=== PATIENT | female | born 1990 | race African-American/Black ===

== ENCOUNTER 2016-06-16 13:13 | Emergency (ER) | payer MEDICAID | END 2016-06-16 14:12 | disposition home or self-care (01) | DX: B34.9 Viral infection, unspecified (principal); I10 Essential (primary) hypertension ==

== ENCOUNTER 2016-10-02 09:27 | Emergency (ER) | payer MEDICAID ==
--- NOTE | 2016-10-02 09:51 | ED Physician Documentation ---
PD HPI HEADACHE - Stated complaint Stated Complaint: PAL/FEMALE - Chief complaint Chief Complaint: General - History obtained from History obtained from: Patient - History of Present Illness Timing - onset: How many days ago (3) Timing - onset during: Light activity Timing - duration: Days (3) Timing - details: Gradual onset, Still present, Waxing and waning Worst headache ever?: No: Worst headache ever? Location: Front Quality: Throbbing, Aching Associated symptoms: Nausea, Other (sinus congestion and pressure from seasonal allergies.). No: Fever, Stiff neck, Vomiting, Weakness, Numbness, Syncope Improved by: No: Rest, Dark room, Meds (tried some ibuprofen yesterday) Worsened by: No: Light, Noise Contributing factors: No: Recent illness Similar symptoms before: Has not had sx before Recently seen: Not recently seen Review of Systems Constitutional: denies: Fever, Chills Eyes: denies: Loss of vision, Decreased vision Ears: denies: Ear pain, Drainage/discharge Nose: reports: Congestion, Sinus pressure / pain Throat: reports: Dental pain / toothache (right upper tooth pain with chesing and temperature for week or so.). denies: Sore throat Cardiac: denies: Chest pain / pressure Respiratory: denies: Dyspnea, Cough, Wheezing GI: reports: Nausea. denies: Abdominal Pain, Vomiting, Constipation, Diarrhea : reports: Dysuria (today, feeling some burning when she urinates. 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 - Present Medications Home Medications: Ambulatory Orders Medication Instructions Recorded Confirmed Sertraline HCl 25 mg PO DAILY 06/14/15 06/16/16 Dexamethasone [Decadron] 4 mg PO DAILY #5 tablet 10/02/16 Hydrocodone/Acetaminophen [[place] 1 each PO Q6H PRN #15 tablet 10/02/16 5-325 Tablet] Insomnia Med 10/02/16 Ondansetron Odt [Zofran] 4 mg TL Q6H PRN #15 tablet 10/02/16 - Allergies Allergies/Adverse Reactions: Allergies Allergy/AdvReac Type Severity Reaction Status Date / Time No Known Drug Allergies Allergy Verified 10/02/16 09:40 - Social History Does the pt smoke?: No Smoking Status: Never smoker Does the pt drink ETOH?: No Does the pt have substance abuse?: No - Immunizations Immunizations are current?: Yes PD ED PE NORMAL - Vitals Vital signs reviewed: Yes - General General: Alert and oriented X 3, Well developed/nourished - HEENT HEENT: Ears normal, Pharynx benign, Other (cavity right upper premolar, without gum swelling nor tenderness. Some sinus tenderness to percussion.) - Neck Neck: Supple, no meningeal sign, No adenopathy - Cardiac Cardiac: RRR, No murmur - Respiratory Respiratory: Clear bilaterally - Abdomen Abdomen: Soft, Non tender - Derm Derm: Normal color, Warm and dry, No rash Results - Vitals Vitals: Vital Signs - 24 hr 10/02/16 10/02/16 09:31 11:12 Temperature 37 C 36.2 C L Heart Rate 77 64 Respiratory 16 18 Rate Blood Pressure 131/79 H 139/85 H O2 Saturation 100 100 Oxygen O2 Source Room air - Labs Labs: Laboratory Tests 10/02/16 09:41 Urine Color YELLOW Urine Clarity CLEAR Urine pH 8.0 H Ur Specific [place] 1.020 Urine Protein NEGATIVE Urine Glucose (UA) NEGATIVE Urine Ketones NEGATIVE Urine Occult Blood MODERATE H Urine Nitrite NEGATIVE Urine Bilirubin NEGATIVE Urine Urobilinogen 0.2 (NORMAL) Ur Leukocyte Esterase NEGATIVE Urine RBC 11-25 H Urine WBC 4-5 Ur Squamous Epith Cells FEW Squamous Amorphous Sediment Moderate Urine Bacteria None Seen Ur Microscopic Review INDICATED Urine Culture Comments NOT INDICATED Urine HCG, Qual NEGATIVE PD MEDICAL DECISION MAKING - ED course Complexity details: reviewed results (UA appears okay without obvious infection. She denies vaginal discharge, rash and we opted for not doing pelvic as she does not suspect vaginitis. ), considered differential (Headache sounds sinus pressure and she has had allergies feeling worse lately. ), d/w patient Departure - Departure Disposition: 01 Home, Self Care Clinical Impression: Dysuria Headache Qualifiers: Headache type: unspecified Headache chronicity pattern: acute headache Intractability: not intractable Qualified Code(s): R51 - Headache Condition: Stable Record reviewed to determine appropriate education?: Yes Instructions: ED Dysuria Uncertain Cause, ED Cephalgia Unspecified Follow-Up: Delbert Sethi MD [Primary Care Provider] - Prescriptions: Dexamethasone [Decadron] 4 mg PO DAILY #5 tablet Hydrocodone/Acetaminophen [[place] 5-325 Tablet] 1 each PO Q6H PRN #15 tablet PRN Reason: Pain Ondansetron Odt [Zofran] 4 mg TL Q6H PRN #15 tablet PRN Reason: Nausea / Vomiting Comments: Drink lots of fluids. Decadron daily for 5 days, presuming headache is sinus/ allergy related. Zofran if needed for nausea. Tylenol or Hydrocodone as needed for headache. Recheck if not improved over the next few days. Your urine does not show signs of infection at this point. May be hydration related. Recheck if not improved over the next couple of days as well. Discharge Date/Time: 10/02/16 11:15
[2016-10-02] MEDS ORDERED: DEXAMETHASONE 10 MG/ML VIAL PO STA (10:03)
[2016-10-02] MEDS ORDERED: ONDANSETRON ODT 4 MG TABLET TL STA (10:03)
[2016-10-02] MEDS ORDERED: HYDROcod/ACETAM 5/325 MG TABLET PO STA (10:03)
[2016-10-02] MEDS ORDERED: ONDANSETRON ODT 4 MG TABLET ONE (10:16)
[2016-10-02] MEDS ORDERED: DEXAMETHASONE 10 MG/ML VIAL ONE (10:16)
[2016-10-02] MEDS ORDERED: HYDROcod/ACETAM 5/325 MG TABLET ONE (10:16)
[2016-10-02 10:42] LABS: BILIRUBIN,URINE NEGATIVE (NEGATIVE)
[2016-10-02 10:55] LABS: HCG UR QUAL NEGATIVE; UA w/ MICROSCOPIC CHARGE YES
[2016-10-02 10:56] LABS: UR CULTURE IF IND NOT INDICATED
[2016-10-02] MEDS ORDERED: PHENAZOPYRIDINE 100 MG TABLET PO STA (11:04)
[2016-10-02] MEDS ORDERED: PHENAZOPYRIDINE 100 MG TABLET PO ONE (11:08)
[2016-10-02 11:13] VITALS: BP 139/85
== END 2016-10-02 11:15 | disposition home or self-care (01) ==
LOC: ED 09:27
DX: R30.0 Dysuria (principal); R51 Headache; I10 Essential (primary) hypertension; J45.909 Unspecified asthma, uncomplicated
CPT/HCPCS: 81001; 81025; 99283; A9270; Q0162; 81003; 87086

== ENCOUNTER 2016-11-18 05:44 | Outpatient (CLI) | payer MEDICAID | END 2016-11-18 05:45 | disposition critical access hospital (66) | LOC: EMS 05:44 | PROVIDERS: ATTEND Surgery | DX: R30.9 Painful micturition, unspecified (principal); R51 Headache | CPT/HCPCS: A0425; A0429 ==

== ENCOUNTER 2016-11-18 06:07 | Emergency (ER) | payer MEDICAID ==
[2016-11-18 06:09] VITALS: BP 132/69
[2016-11-18 06:22] LABS: BILIRUBIN,URINE NEGATIVE (NEGATIVE)
--- NOTE | 2016-11-18 06:22 | ED Physician Documentation ---
PD HPI FEMALE - Stated complaint Stated Complaint: - Chief complaint Chief Complaint: General - History obtained from History obtained from: Patient - History of Present Illness Timing - onset: Yesterday Timing - details: Gradual onset, Still present Associated symptoms: Vaginal bleeding, Dysuria, Urinary frequency. No: Abdominal pain, Vaginal discharge, Genital sore/lesion Contributing factors: No: Similar symptoms before: Work up / diagnostics, Treatment Recently seen: Not recently seen - Additional information Additional information: Patient is a 26 year old female with a history of cerebral palsy who is presenting to the emergency department for dysuria. Patient states that the symptoms started yesterday with severe burning and got progressively worse so she called ems to bring her to the emergency department. Review of Systems Constitutional: denies: Fever, Chills Eyes: denies: Loss of vision, Photophobia Ears: denies: Ear pain, Drainage/discharge Nose: denies: Rhinorrhea / runny nose, Congestion Throat: denies: Dental pain / toothache, Sore throat Cardiac: denies: Chest pain / pressure Respiratory: denies: Cough, Wheezing GI: denies: Abdominal Pain, Nausea, Vomiting, Constipation, Diarrhea : reports: Dysuria, Frequency, Vaginal bleeding Skin: denies: Rash, Lesions Neurologic: reports: Headache. 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 - Present Medications Home Medications: Ambulatory Orders Medication Instructions Recorded Confirmed Sertraline HCl 25 mg PO DAILY 06/14/15 11/18/16 Benzonatate 1 tab PO PRN PRN 11/18/16 11/18/16 Phenazopyridine HCl [Pyridium] 200 mg PO TID PRN #6 tablet 11/18/16 Risperidone [Risperdal] 1 tab PO DAILY 11/18/16 11/18/16 Sulfamethox/Trimeth 800/160 1 each PO BID #14 tablet 11/18/16 [Bactrim Ds 800/160] traZODone [Desyrel] 1 tab PO DAILY 11/18/16 11/18/16 - Allergies Allergies/Adverse Reactions: Allergies Allergy/AdvReac Type Severity Reaction Status Date / Time No Known Drug Allergies Allergy Verified 11/18/16 06:09 - Social History Does the pt smoke?: No Smoking Status: Never smoker Does the pt drink ETOH?: No Does the pt have substance abuse?: No - Immunizations Immunizations are current?: Yes PD ED PE NORMAL - Vitals Vital signs reviewed: Yes - General General: Alert and oriented X 3, No acute distress, Well developed/nourished - HEENT HEENT: Atraumatic, PERRL, Moist mucous membranes - Neck Neck: Supple, no meningeal sign - Cardiac Cardiac: RRR, No murmur - Respiratory Respiratory: No respiratory distress, Clear bilaterally - Abdomen Abdomen: Soft, Non tender, Non distended - Derm Derm: Normal color, Warm and dry, No rash - Extremities Extremities: No deformity, No tenderness to palpate, Normal ROM s pain - Neuro Neuro: Alert and oriented X 3, No motor deficit, No sensory deficit, Normal speech - Psych Psych: Normal mood, Normal affect Results - Vitals Vitals: Vital Signs - 24 hr 11/18/16 06:07 Temperature 37.2 C Heart Rate 84 Respiratory 15 Rate Blood Pressure 132/69 H O2 Saturation 96 Oxygen O2 Source Room air - Labs Labs: Laboratory Tests 11/18/16 11/18/16 06:10 06:10 Urine Color LIGHT YELLOW Urine Clarity CLOUDY Urine pH 7.0 Ur Specific [place] 1.015 1.015 Urine Protein NEGATIVE Urine Glucose (UA) NEGATIVE Urine Ketones NEGATIVE Urine Occult Blood SMALL H Urine Nitrite POSITIVE H Urine Bilirubin NEGATIVE Urine Urobilinogen 0.2 (NORMAL) Ur Leukocyte Esterase LARGE H Urine RBC 6-10 H Urine WBC >25 H Urine WBC Clumps PRESENT Ur Squamous Epith Cells RARE Squamous Urine Bacteria Moderate H Ur Microscopic Review INDICATED Urine Culture Comments INDICATED Urine HCG, Qual NEGATIVE PD MEDICAL DECISION MAKING - ED course Complexity details: reviewed old records, reviewed results, re-evaluated patient , considered differential, d/w patient ED course: Patient was seen and examined at bedside. patient was well appearing with normal vital signs. patient's urine was collected. when the results came back patient was treated with. bactrim, pyridium and tylenol. Patient was able to tolerate po without any difficulty and was stable for discharge with outpatient follow up. Departure - Departure Disposition: 01 Home, Self Care Clinical Impression: Urinary tract infection Condition: Good Instructions: ED UTI Cystitis Female Follow-Up: primary,care provider [Other] Prescriptions: Sulfamethox/Trimeth 800/160 [Bactrim Ds 800/160] 1 each PO BID #14 tablet Phenazopyridine HCl [Pyridium] 200 mg PO TID PRN #6 tablet PRN Reason: dysuria Comments: Your symptoms today are being caused by a urinary tract infection. You will have your first dose of antibiotics this morning and will need to take them for the next week. You should drink plenty of fluids and stay well hydrated. the pyridium may turn your urine orange. You can take motrin or tylenol as needed for pain. You may return to the emergency department at any time for new, worsening or uncontrollable symptoms.
[2016-11-18 06:26] LABS: UA w/ MICROSCOPIC CHARGE YES
[2016-11-18 06:27] LABS: HCG UR QUAL NEGATIVE
[2016-11-18] MEDS ORDERED: ACETAMINOPHEN 500 MG TABLET PO STA (06:33)
[2016-11-18] MEDS ORDERED: SULFAMETH/TRIMETH DS 800/160 MG TABLET PO STA (06:33)
[2016-11-18] MEDS ORDERED: PHENAZOPYRIDINE 100 MG TABLET PO STA (06:33)
[2016-11-18 06:34] LABS: UR CULTURE IF IND INDICATED; WBC,URINE >25 /HPF (0-5)
[2016-11-18] MEDS ORDERED: SULFAMETH/TRIMETH DS 800/160 MG TABLET PO ONE (06:41)
[2016-11-18] MEDS ORDERED: PHENAZOPYRIDINE 100 MG TABLET PO ONE (06:41)
[2016-11-18] MEDS ORDERED: ACETAMINOPHEN 500 MG TABLET PO ONE (06:41)
== END 2016-11-18 06:48 | disposition home or self-care (01) ==
LOC: EDBD → ED 06:07
DX: N39.0 Urinary tract infection, site not specified (principal); I10 Essential (primary) hypertension; G80.9 Cerebral palsy, unspecified
CPT/HCPCS: 81001; 81025; 87077; 87086; 87181; 99283; A9270; 81003

== ENCOUNTER 2017-01-15 15:59 | Emergency (ER) | payer MEDICAID ==
[2017-01-15 16:26] VITALS: BP 110/70
[2017-01-15] MEDS ORDERED: DEXAMETHASONE 10 MG/ML VIAL PO STA (17:28)
--- NOTE | 2017-01-15 17:30 | ED Physician Documentation ---
PD KENY HEENT - Stated complaint Stated Complaint: RT EAR PX - Chief complaint Chief Complaint: Heent - History obtained from History obtained from: Patient - History of Present Illness Timing - onset: How many days ago (3) Timing - duration: Days (3) Timing - details: Gradual onset, Still present Location: Right ear Improves: Medication Worsens: Swalllowing Associated symptoms: Congestion, Headache Similar symptoms before: Has not had sx before Recently seen: Not recently seen - Additional information Additional information: 26-year-old female is began to develop some pain in her right ear about 3 days ago she has had persistence of this pain did not go away so she is come in for evaluation. She has not had much in the way of a cough she has had a little bit of congestion she does not have much in the way of postnasal drainage. 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 - Present Medications Home Medications: Ambulatory Orders Medication Instructions Recorded Confirmed Sertraline HCl 25 mg PO DAILY 06/14/15 11/18/16 Benzonatate 1 tab PO PRN PRN 11/18/16 11/18/16 Phenazopyridine HCl [Pyridium] 200 mg PO TID PRN #6 tablet 11/18/16 Risperidone [Risperdal] 1 tab PO DAILY 11/18/16 11/18/16 Sulfamethox/Trimeth 800/160 1 each PO BID #14 tablet 11/18/16 [Bactrim Ds 800/160] traZODone [Desyrel] 1 tab PO DAILY 11/18/16 11/18/16 Azithromycin [Zithromax] 250 mg PO DAILY #6 tablet 01/15/17 - Allergies Allergies/Adverse Reactions: Allergies Allergy/AdvReac Type Severity Reaction Status Date / Time No Known Drug Allergies Allergy Verified 11/18/16 06:09 - Social History Does the pt smoke?: No Smoking Status: Never smoker Does the pt drink ETOH?: No Does the pt have substance abuse?: No - Immunizations Immunizations are current?: Yes PD ED PE NORMAL - Vitals Vital signs reviewed: Yes (Normal) - General General: No acute distress, Well developed/nourished - HEENT HEENT: Atraumatic, PERRL, EOMI, Moist mucous membranes, Pharynx benign (There is erythema in the attic on the right side the left is clear.), Other - Neck Neck: Supple, no meningeal sign, No bony TTP - Cardiac Cardiac: RRR, No murmur - Respiratory Respiratory: No respiratory distress, Clear bilaterally - Abdomen Abdomen: Soft, Non tender - Derm Derm: Normal color, Warm and dry, No rash - Extremities Extremities: No deformity, No edema - Neuro Neuro: Alert and oriented X 3, No motor deficit, No sensory deficit - Psych Psych: Normal mood, Normal affect Results - Vitals Vitals: Vital Signs - 24 hr 01/15/17 16:21 Temperature 36.7 C Heart Rate 88 Respiratory 18 Rate Blood Pressure 110/70 O2 Saturation 100 Oxygen O2 Source Room air PD MEDICAL DECISION MAKING - ED course Complexity details: reviewed old records, considered differential, d/w patient ED course: 26-year-old female with history of cerebral palsy who has had pain in her right ear for 3 days she does have some inflammation of the attic and she is treated in the emergency department with dexamethasone 10 mg orally and we will put her on some azithromycin. Departure - Departure Disposition: 01 Home, Self Care Clinical Impression: Otitis media Qualifiers: Otitis media type: suppurative Chronicity: acute Laterality: right Recurrence: not specified as recurrent Spontaneous tympanic membrane rupture: without spontaneous rupture Qualified Code(s): H66.001 - Acute suppurative otitis media without spontaneous rupture of ear drum, right ear Condition: Stable Instructions: ED Otitis Media Acute Adult Follow-Up: Delbert Sethi MD [Primary Care Provider] - Prescriptions: Azithromycin [Zithromax] 250 mg PO DAILY #6 tablet
[2017-01-15] MEDS ORDERED: DEXAMETHASONE 10 MG/ML VIAL ONE (17:34)
== END 2017-01-15 17:42 | disposition home or self-care (01) ==
LOC: ED 15:59
DX: H66.001 Acute suppurative otitis media without spontaneous rupture of ear drum, right ear (principal); I10 Essential (primary) hypertension
CPT/HCPCS: 99283

== ENCOUNTER 2017-03-01 10:00 | Outpatient (CLI) | payer MEDICAID | END 2017-03-01 10:15 | disposition home or self-care (01) | LOC: RT.N 10:00 | PROVIDERS: ATTEND Physician Assistant Medical | DX: R07.89 Other chest pain (principal) | CPT/HCPCS: 93005 ==

== ENCOUNTER 2017-05-01 09:59 | Emergency (ER) | payer MEDICAID ==
[2017-05-01 10:17] VITALS: BP 129/100
--- NOTE | 2017-05-01 11:11 | ED Physician Documentation ---
History of Present Illness - Stated complaint Stated Complaint: COLD SX - Chief complaint Chief Complaint: Fever - Additonal information Additional information: hx from pt to ER with 2 problems 1 - R lower premolar pain rad to side of her face 2 - cough congestion body aches fever chills denies preg Review of Systems Constitutional: reports: Fever, Chills Nose: reports: Congestion Throat: reports: Dental pain / toothache Respiratory: reports: Cough : denies: Now EGA PD PAST MEDICAL HISTORY - Past Medical History Cardiovascular: Hypertension Respiratory: Asthma Neuro: Headache/migraine, Seizure disorder - Past Surgical History Past Surgical History: Yes 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 - Present Medications Home Medications: Ambulatory Orders Medication Instructions Recorded Confirmed Sertraline HCl 25 mg PO DAILY 06/14/15 05/01/17 risperiDONE [Risperdal] 1 tab PO DAILY 11/18/16 05/01/17 traZODone [Desyrel] 1 tab PO DAILY 11/18/16 05/01/17 Benzonatate [Tessalon] 100 mg PO TID PRN #20 capsule 05/01/17 Fluticasone [Flonase] 1 sprays MAXWELL BID PRN #1 bottle 05/01/17 Penicillin Vk 500 mg PO Q8H 10 Days tablet 05/01/17 guaiFENesin/DEXTROMETHORPHAN 10 ml PO Q6H PRN #120 ml 05/01/17 [Robitussin Dm] - Allergies Allergies/Adverse Reactions: Allergies Allergy/AdvReac Type Severity Reaction Status Date / Time No Known Drug Allergies Allergy Verified 05/01/17 10:17 - Social History Does the pt smoke?: No Smoking Status: Never smoker Does the pt drink ETOH?: No Does the pt have substance abuse?: No - Immunizations Immunizations are current?: Yes PD ED PE NORMAL - Vitals Vital signs reviewed: Yes - General General: Alert and oriented X 3 - HEENT HEENT: PERRL, Ears normal, Moist mucous membranes, Pharynx benign, Other (R premolar with cavity and TTP no visible abscess) - Neck Neck: Supple, no meningeal sign - Cardiac Cardiac: RRR - Respiratory Respiratory: No respiratory distress, Clear bilaterally - Abdomen Abdomen: Soft, Non tender Results - Vitals Vitals: Vital Signs - 24 hr 05/01/17 10:15 Temperature 36.9 C Heart Rate 76 Respiratory 18 Rate Blood Pressure 129/100 H O2 Saturation 100 Oxygen O2 Source Room air Departure - Departure Disposition: 01 Home, Self Care Clinical Impression: Viral URI, Dental infection Condition: Good Instructions: ED URI Viral, ED Abscess Dental Follow-Up: Dre Dickerson PA-C [Primary Care Provider] - Prescriptions: Benzonatate [Tessalon] 100 mg PO TID PRN #20 capsule PRN Reason: to ease cough Fluticasone [Flonase] 1 sprays MAXWELL BID PRN #1 bottle PRN Reason: allergies guaiFENesin/DEXTROMETHORPHAN [Robitussin Dm] 10 ml PO Q6H PRN #120 ml PRN Reason: Cough Penicillin Vk 500 mg PO Q8H 10 Days tablet Comments: I have prescribed an antibiotic for your tooth, a nose srpay for you congestion and two cough medications. You can also take Tylenol and motrin as needed for pain or fever You need to follow up with a dentist - the antibiotic will help the infection temporarily but not fix the cavity Forms: Activity restrictions
== END 2017-05-01 11:22 | disposition home or self-care (01) ==
LOC: ED 09:59
DX: K04.7 Periapical abscess without sinus (principal); J06.9 Acute upper respiratory infection, unspecified; B97.89 Other viral agents as the cause of diseases classified elsewhere; I10 Essential (primary) hypertension
CPT/HCPCS: 99283

== ENCOUNTER 2017-08-30 09:00 | Emergency (ER) | payer MEDICAID ==
[2017-08-30 09:09] VITALS: BP 129/90
[2017-08-30 09:55] LABS: BILIRUBIN,URINE NEGATIVE (NEGATIVE); GLUCOSE, URINE (UA) NEGATIVE (NEGATIVE); KETONES,URINE (UA) NEGATIVE (NEGATIVE); LEUKOCYTE ESTERASE, URINE NEGATIVE (NEGATIVE); NITRITE,URINE NEGATIVE (NEGATIVE); OCCULT BLOOD,URINE NEGATIVE (NEGATIVE); PROTEIN,URINE NEGATIVE (NEGATIVE); UROBILINOGEN,URINE 0.2 (NORMAL) E.U./dL (NORMAL)
[2017-08-30 09:58] LABS: CLARITY,URINE CLEAR (CLEAR)
--- NOTE | 2017-08-30 10:22 | ED Physician Documentation ---
PD HPI FEMALE - Stated complaint Stated Complaint: FEMALE - Chief complaint Chief Complaint: Abd Pain - History obtained from History obtained from: Patient - History of Present Illness Timing - onset: How many days ago (3) Timing - details: Still present in ED Associated symptoms: Dysuria Similar symptoms before: Has not had sx before (History of similar symptoms with urinary tract infections in the past. The last time was about 2 months ago.) - Additional information Additional information: The patient is a 27-year-old female who complains of dysuria over the past 3 days. She denies fever, nausea, vomiting, or vaginal discharge. She is currently on her menstrual period. She has a history of urinary tract infections. The last time was about 2 months ago. She has no history of diabetes. Review of Systems Constitutional: denies: Fever Nose: denies: Congestion Throat: denies: Sore throat Cardiac: denies: Chest pain / pressure Respiratory: denies: Dyspnea, Cough GI: denies: Abdominal Pain, Nausea, Vomiting : reports: Dysuria, Frequency, LMP (currently). 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 - Present Medications Home Medications: Ambulatory Orders Medication Instructions Recorded Confirmed Sertraline HCl 25 mg PO DAILY 06/14/15 05/01/17 Bcp 08/30/17 Phenazopyridine HCl [Pyridium] 200 mg PO TID PRN #10 tablet 08/30/17 - Allergies Allergies/Adverse Reactions: Allergies Allergy/AdvReac Type Severity Reaction Status Date / Time No Known Drug Allergies Allergy Verified 08/30/17 09:09 - Social History Does the pt smoke?: No Smoking Status: Never smoker Does the pt drink ETOH?: No Does the pt have substance abuse?: No - Immunizations Immunizations are current?: Yes PD ED PE NORMAL - Vitals Vital signs reviewed: Yes (borderline hypertension initially) - General General: Alert and oriented X 3, Well developed/nourished - HEENT HEENT: Atraumatic, Pharynx benign - Neck Neck: No adenopathy - Cardiac Cardiac: RRR - Respiratory Respiratory: No respiratory distress, Clear bilaterally - Abdomen Abdomen: Soft, Non tender - Back Back: No CVA TTP - Derm Derm: No rash - Extremities Extremities: No edema, No calf tenderness / cord - Neuro Neuro: Alert and oriented X 3, No motor deficit, Normal speech PD ED PE EXPANDED - Female Female : Normal external, Normal exam, Cultures sent, Tobacco Sweeper present ( BECCA Garcia.). No: Vaginal Bleeding, Vaginal Discharge, CMT, Adnexal Tenderness Results - Vitals Vitals: Vital Signs - 24 hr 08/30/17 09:06 Temperature 36.4 C L Heart Rate 62 Respiratory 16 Rate Blood Pressure 129/90 H O2 Saturation 99 Oxygen O2 Source Room air - Labs Labs: Laboratory Tests 08/30/17 09:48 Urine Color YELLOW Urine Clarity CLEAR Urine pH 6.0 Ur Specific [place] 1.020 Urine Protein NEGATIVE Urine Glucose (UA) NEGATIVE Urine Ketones NEGATIVE Urine Occult Blood NEGATIVE Urine Nitrite NEGATIVE Urine Bilirubin NEGATIVE Urine Urobilinogen 0.2 (NORMAL) Ur Leukocyte Esterase NEGATIVE Ur Microscopic Review NOT INDICATED Urine Culture Comments NOT INDICATED PD MEDICAL DECISION MAKING - ED course Complexity details: reviewed old records, reviewed results, re-evaluated patient , considered differential, d/w patient ED course: The underlying cause of the patient's dysuria is unclear at this time. Her urinalysis is negative. Pelvic exam reveals no vaginal discharge or inflammation or ulcerations. Pelvic cultures were obtained and sent to the lab , and results are pending. Treatment in the emergency department included administration of Pyridium 200 mg orally. She is being discharged with a prescription for Pyridium. I discussed with her the results of her workup, symptomatic treatment and outpatient follow-up, as well as potentially worrisome signs or symptoms that should prompt reevaluation in the emergency department. Departure - Departure Disposition: 01 Home, Self Care Clinical Impression: Dysuria Condition: Stable Instructions: ED Dysuria Uncertain Cause Follow-Up: Delbert Sethi MD [Primary Care Provider] - Prescriptions: Phenazopyridine HCl [Pyridium] 200 mg PO TID PRN #10 tablet PRN Reason: pain with urination Comments: Drink plenty of fluids, including cranberry juice. You can use Pyridium as prescribed if needed for painful urination. Follow up with your primary physician within 2 weeks. Call to schedule appointment. Return to the emergency department if you develop increasing pain with urination , or otherwise worsening symptoms.
[2017-08-30] MEDS ORDERED: PHENAZOPYRIDINE 100 MG TABLET PO STA (11:03)
--- NOTE | 2017-08-30 11:11 | ED Physician Documentation ---
PD HPI FEMALE - Stated complaint Stated Complaint: FEMALE - Chief complaint Chief Complaint: Abd Pain - History obtained from History obtained from: Patient - History of Present Illness Timing - onset: How many days ago (3) Timing - details: Still present Associated symptoms: Dysuria Similar symptoms before: Diagnosis (History of similar symptoms in the past with urinary tract infections. The last time was about 2 months ago.) - Additional information Additional information: The patient is a 27-year-old female who presents with dysuria of 3 days duration. She denies abdominal pain, fever, nausea or vomiting. She has history of similar symptoms in the past with urinary tract infections. Last time was about 2 months ago. She is currently on her menstrual period. 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 - Present Medications Home Medications: Ambulatory Orders Medication Instructions Recorded Confirmed Sertraline HCl 25 mg PO DAILY 06/14/15 05/01/17 Bcp 08/30/17 Phenazopyridine HCl [Pyridium] 200 mg PO TID PRN #10 tablet 08/30/17 - Allergies Allergies/Adverse Reactions: Allergies Allergy/AdvReac Type Severity Reaction Status Date / Time No Known Drug Allergies Allergy Verified 08/30/17 09:09 - Social History Does the pt smoke?: No Smoking Status: Never smoker Does the pt drink ETOH?: No Does the pt have substance abuse?: No - Immunizations Immunizations are current?: Yes PD ED PE NORMAL - Vitals Vital signs reviewed: Yes (borderline hypertension initially.) - General General: Alert and oriented X 3, Well developed/nourished - HEENT HEENT: Atraumatic - Respiratory Respiratory: No respiratory distress - Abdomen Abdomen: Soft, Non tender - Female Female : Head Of Housekeeping present - Back Back: No CVA TTP - Derm Derm: No rash - Neuro Neuro: Alert and oriented X 3, Normal speech PD ED PE EXPANDED - Female Female : Normal external, Normal exam, Cultures sent, Head Of Housekeeping present. No: Vaginal Bleeding, Vaginal Discharge, CMT, Adnexal Mass, Adnexal Tenderness Results - Vitals Vitals: Oxygen O2 Source Room air - Labs Labs: Laboratory Tests 08/30/17 08/30/17 09:48 11:05 Urine Color YELLOW Urine Clarity CLEAR Urine pH 6.0 Ur Specific [place] 1.020 Urine Protein NEGATIVE Urine Glucose (UA) NEGATIVE Urine Ketones NEGATIVE Urine Occult Blood NEGATIVE Urine Nitrite NEGATIVE Urine Bilirubin NEGATIVE Urine Urobilinogen 0.2 (NORMAL) Ur Leukocyte Esterase NEGATIVE Ur Microscopic Review NOT INDICATED Urine Culture Comments NOT INDICATED C.trachomatis RNA (TMA) NOT DETECTED Chlamydia/GC Comment SEE NOTE N.gonorrhoeae RNA (TMA) NOT DETECTED PD MEDICAL DECISION MAKING - ED course Complexity details: reviewed results, re-evaluated patient, considered differential, d/w patient ED course: The underlying cause for the patient's dysuria is unclear at this time. Her urinalysis is negative, and test is negative. GC and chlamydia cultures are pending. Her pelvic exam reveals no evidence of vaginal mucosal lesions or discharge. Treatment in the emergency department included administration of Pyridium 200 mg orally. She is being discharged with prescription for Pyridium. I discussed with her symptomatic treatment, outpatient follow-up, as well as potentially worrisome signs or symptoms that should prompt reevaluation in the emergency department. Departure - Departure Disposition: 01 Home, Self Care Clinical Impression: Dysuria Condition: Stable Instructions: ED Dysuria Uncertain Cause Follow-Up: Delbert Sethi MD [Primary Care Provider] - Prescriptions: Phenazopyridine HCl [Pyridium] 200 mg PO TID PRN #10 tablet PRN Reason: pain with urination Comments: Drink plenty of fluids, including cranberry juice. You can use Pyridium as prescribed if needed for painful urination. Follow up with your primary physician within 2 weeks. Call to schedule appointment. Return to the emergency department if you develop increasing pain with urination , or otherwise worsening symptoms. Forms: Activity restrictions Discharge Date/Time: 08/30/17 11:23
== END 2017-08-30 11:23 | disposition home or self-care (01) ==
LOC: ED 09:00
DX: R30.0 Dysuria (principal); I10 Essential (primary) hypertension
CPT/HCPCS: 81003; 87491; 87591; 99283; A9270; 81001; 87086

== ENCOUNTER 2017-11-18 14:07 | Emergency (ER) | payer MEDICAID ==
[2017-11-18 14:12] VITALS: BP 132/81
[2017-11-18 14:42] LABS: BILIRUBIN,URINE NEGATIVE (NEGATIVE); GLUCOSE, URINE (UA) NEGATIVE (NEGATIVE); KETONES,URINE (UA) NEGATIVE (NEGATIVE); LEUKOCYTE ESTERASE, URINE SMALL (NEGATIVE); NITRITE,URINE NEGATIVE (NEGATIVE); OCCULT BLOOD,URINE NEGATIVE (NEGATIVE); PROTEIN,URINE NEGATIVE (NEGATIVE); UROBILINOGEN,URINE 0.2 (NORMAL) E.U./dL (NORMAL)
[2017-11-18 14:44] LABS: CLARITY,URINE HAZY (CLEAR); HCG UR QUAL POSITIVE
[2017-11-18 14:48] LABS: RBC,URINE 0-5 /HPF (0-5)
[2017-11-18 14:49] LABS: BACTERIA,URINE Few /HPF (None Seen); SQUAMOUS EPITHELIAL CELL,UR MOD Squamous (<= Few)
--- NOTE | 2017-11-18 15:02 | ED Physician Documentation ---
History of Present Illness - Stated complaint Stated Complaint: TEST - Chief complaint Chief Complaint: General - Additonal information Additional information: hx from pt 27 f prior pregnancies to ED with nausea and low back pain LMP October 04 when i ask if she might be she says that i what she is here to find out Review of Systems Constitutional: denies: Fever, Chills Cardiac: denies: Chest pain / pressure GI: reports: Nausea. denies: Abdominal Pain : reports: Now EGA (maybe). 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 - Present Medications Home Medications: Ambulatory Orders Medication Instructions Recorded Confirmed Pnv No.121/Iron/Folic Acid 1 each PO DAILY #30 tablet 11/18/17 [ Multivitamin Tablet] Pyridoxine HCl [Vitamin B-6] 25 mg PO Q8H PRN #10 tablet 11/18/17 - Allergies Allergies/Adverse Reactions: Allergies Allergy/AdvReac Type Severity Reaction Status Date / Time No Known Drug Allergies Allergy Verified 11/18/17 14:12 - Social History Does the pt smoke?: No Smoking Status: Never smoker Does the pt drink ETOH?: No Does the pt have substance abuse?: No - Immunizations Immunizations are current?: Yes - POLST Patient has POLST: No PD ED PE NORMAL - Vitals Vital signs reviewed: Yes - Neck Neck: Supple, no meningeal sign - Cardiac Cardiac: RRR - Respiratory Respiratory: No respiratory distress - Abdomen Abdomen: Soft, Non tender - Derm Derm: Normal color - Neuro Neuro: Alert and oriented X 3 Results - Vitals Vitals: Vital Signs - 24 hr 11/18/17 14:09 Temperature 36.8 C Heart Rate 89 Respiratory 16 Rate Blood Pressure 132/81 H O2 Saturation 100 Oxygen O2 Source Room air - Labs Labs: Laboratory Tests 11/18/17 14:16 Urine Color YELLOW Urine Clarity HAZY Urine pH 7.0 Ur Specific [place] 1.010 Urine Protein NEGATIVE Urine Glucose (UA) NEGATIVE Urine Ketones NEGATIVE Urine Occult Blood NEGATIVE Urine Nitrite NEGATIVE Urine Bilirubin NEGATIVE Urine Urobilinogen 0.2 (NORMAL) Ur Leukocyte Esterase SMALL H Urine RBC 0-5 Urine WBC 6-10 H Ur Squamous Epith Cells MOD Squamous H Urine Bacteria Few Ur Microscopic Review INDICATED Urine Culture Comments NOT INDICATED Urine HCG, Qual POSITIVE PD MEDICAL DECISION MAKING - ED course ED course: pt no abd pain no vag bleed do not feel pt needs emergent OB sono as she has no s/sx of ectopic - Sepsis Event Vital Signs: Vital Signs - 24 hr 11/18/17 14:09 Temperature 36.8 C Heart Rate 89 Respiratory 16 Rate Blood Pressure 132/81 H O2 Saturation 100 Oxygen O2 Source Room air Departure - Departure Disposition: 01 Home, Self Care Clinical Impression: Qualifiers: Weeks of gestation: less than 8 weeks Qualified Code(s): Z3A.01 - Less than 8 weeks gestation of Condition: Good Prescriptions: Pnv No.121/Iron/Folic Acid [ Multivitamin Tablet] 1 each PO DAILY #30 tablet Pyridoxine HCl [Vitamin B-6] 25 mg PO Q8H PRN #10 tablet PRN Reason: vomiting in
== END 2017-11-18 15:48 | disposition home or self-care (01) ==
LOC: ED 14:07
DX: Z32.01 Encounter for pregnancy test, result positive (principal); O10.911 Unspecified pre-existing hypertension complicating pregnancy, first trimester; Z3A.08 8 weeks gestation of pregnancy
CPT/HCPCS: 81001; 81003; 81025; 87086; 99283

== ENCOUNTER 2017-12-12 08:00 | Outpatient (CLI) | payer MEDICAID | END 2017-12-12 08:01 | LOC: LAB.R 08:00 | PROVIDERS: ATTEND Obstetrics & Gynecology | DX: Z11.3 Encounter for screening for infections with a predominantly sexual mode of transmission (principal) | CPT/HCPCS: 87491; 87591 ==

== ENCOUNTER 2017-12-19 09:06 | Outpatient (CLI) | payer MEDICAID ==
[2017-12-19 10:51] LABS: BASOPHILS % (AUTO) 0.5 %; EOSINOPHILS % (AUTO) 0.6 %; HGB - HEMOGLOBIN 11.5 g/dL (12.0-16.0); LYMPHOCYTES # (AUTO) 1.6 10^3/uL (1.5-3.5); LYMPHOCYTES % (AUTO) 20.5 %; MEAN CORPUSCULAR HEMOGLOBIN 29.8 pg (27.0-31.0); MEAN CORPUSCULAR VOLUME 87.8 fL (81.0-99.0); MEAN PLATELET VOLUME 7.9 fL (7.9-10.8); MONOCYTES # (AUTO) 0.5 10^3/uL (0.0-1.0); MONOCYTES % (AUTO) 6.5 %; NEUTROPHILS # (AUTO) 5.6 10^3/uL (1.5-6.6); NEUTROPHILS % (AUTO) 71.9 %; PLT - PLATELET COUNT 258 10^3/uL (130-450); RED BLOOD COUNT 3.85 10^6/uL (4.20-5.40); RED CELL DISTRIBUTION WIDTH 13.5 % (12.0-15.0); WHITE BLOOD COUNT 7.7 x10^3/uL (4.8-10.8)
[2017-12-19 11:00] LABS: BILIRUBIN,URINE NEGATIVE (NEGATIVE); GLUCOSE, URINE (UA) NEGATIVE (NEGATIVE); KETONES,URINE (UA) NEGATIVE (NEGATIVE); LEUKOCYTE ESTERASE, URINE TRACE (NEGATIVE); NITRITE,URINE NEGATIVE (NEGATIVE); OCCULT BLOOD,URINE NEGATIVE (NEGATIVE); PH,URINE 6.5 PH (5.0-7.5); PROTEIN,URINE NEGATIVE (NEGATIVE); UROBILINOGEN,URINE 0.2 (NORMAL) E.U./dL (NORMAL)
[2017-12-19 11:17] LABS: CLARITY,URINE CLEAR (CLEAR)
[2017-12-19 11:25] LABS: BACTERIA,URINE Rare /HPF (None Seen); RBC,URINE 0-5 /HPF (0-5); SQUAMOUS EPITHELIAL CELL,UR FEW Squamous (<= Few)
--- NOTE | 2017-12-19 14:14 | Ultrasound Report ---
Reason: ENCTR FOR TEST, RESULT POSITIVE Procedure Date: 12/19/2017 Accession Number: [id number] / [id number] Procedure: US - OB First Trimester CPT Code: FULL RESULT: EXAM: FIRST TRIMESTER OBSTETRIC ULTRASOUND (Less than 11 weeks) EXAM DATE: 12/19/2017 09:33 AM. CLINICAL HISTORY: Encounter for test, result positive. LMP: 10/10/2017. COMPARISONS: None. TECHNIQUE: Transabdominal ultrasound examination with static image documentation. CLINICAL DATES: EGA 10 weeks, 0 days with ANGELINE 07/17/2018 based on LMP, based on current ultrasound, 11 weeks, 2 days with ANGELINE 07/08/2018. ASSESSMENT: Gestational Sac: Single intrauterine. Mean gestational sac diameter: 59.3 mm = 11 weeks 2 days. Embryo: CRL (crown-rump length) 46.5 mm = 11 weeks, 2 days, ANGELINE 07/08/2018. Cardiac activity: 159 beats per minute. Yolk sac: 5.2 mm. Amniotic fluid: Not accurately assessed at this gestational age. Placenta Location (>10 weeks): Posterior. Other: No perigestational fluid collection demonstrated. MATERNAL STRUCTURES: Uterus: Anteverted. Unremarkable. Cervix: Closed. Right Ovary/Adnexa: Not seen. Left Ovary/Adnexa: Unremarkable. The ovary measures 2.2 x 1.4 x 1.6 cm, volume 2.5 cc. Free Fluid: None. Other: None. IMPRESSION: 1. Single viable intrauterine at EGA 11 weeks 2 days with ANGELINE 07/08/2018 based on crown-rump length, which is concordant with clinical dates. 2. Assigned dating is ANGELINE 07/08/2018 based on current ultrasound. RADIA
[2017-12-20 15:06] LABS: HIV AG/AB 4TH GEN NON-REACTIVE (NON-REACTIVE)
[2017-12-20 16:36] LABS: HEPATITIS B SURFACE ANTIGEN NON-REACTIVE (NON-REACTIVE); HEPATITIS C ANTIBODY NON-REACTIVE (NON-REACTIVE)
== END 2017-12-19 09:07 | disposition home or self-care (01) ==
LOC: DI 09:06
PROVIDERS: ATTEND Obstetrics & Gynecology
DX: Z36.9 Encounter for antenatal screening, unspecified (principal); Z32.01 Encounter for pregnancy test, result positive
CPT/HCPCS: 36415; 76801; 81001; 81599; 85025; 86762; 86803; 86850; 86870; 86900; 86901; 87340; 87389

== ENCOUNTER 2017-12-26 11:57 | Outpatient (CLI) | payer MEDICAID | END 2017-12-26 11:58 | disposition home or self-care (01) | LOC: LAB 11:57 | PROVIDERS: ATTEND Obstetrics & Gynecology | DX: Z36.9 Encounter for antenatal screening, unspecified (principal) | CPT/HCPCS: 36415; 81599; 84163 ==

== ENCOUNTER 2018-01-28 11:07 | Outpatient (CLI) | payer MEDICAID | END 2018-01-28 11:08 | disposition home or self-care (01) | LOC: LAB 11:07 | PROVIDERS: ATTEND Obstetrics & Gynecology | DX: Z13.79 Encounter for other screening for genetic and chromosomal anomalies (principal); Z3A.22 22 weeks gestation of pregnancy | CPT/HCPCS: 36415; 81599; 82105; 82677; 84163; 84702; 86336 ==

== ENCOUNTER 2018-02-07 08:49 | Outpatient (CLI) | payer MEDICAID | END 2018-02-07 08:50 | disposition home or self-care (01) | LOC: LAB 08:49 | PROVIDERS: ATTEND Obstetrics & Gynecology | DX: Z53.9 Procedure and treatment not carried out, unspecified reason (principal) ==

== ENCOUNTER 2018-02-11 11:01 | Outpatient (CLI) | payer MEDICAID | END 2018-02-11 11:02 | disposition home or self-care (01) | LOC: LAB 11:01 | PROVIDERS: ATTEND Obstetrics & Gynecology | DX: O36.1990 Maternal care for other isoimmunization, unspecified trimester, not applicable or unspecified (principal); Z36.9 Encounter for antenatal screening, unspecified | CPT/HCPCS: 36415; 81599; 86870 ==

== ENCOUNTER 2018-02-18 11:15 | Outpatient (CLI) | payer MEDICAID ==
[2018-02-18 12:01] LABS: HGB - HEMOGLOBIN 10.6 g/dL (12.0-16.0); MEAN CORPUSCULAR HEMOGLOBIN 31.2 pg (27.0-31.0); MEAN CORPUSCULAR HGB CONC 34.6 g/dL (32.0-36.0); MEAN CORPUSCULAR VOLUME 90.2 fL (81.0-99.0); MEAN PLATELET VOLUME 8.6 fL (7.9-10.8); RED BLOOD COUNT 3.4 10^6/uL (4.20-5.40); RED CELL DISTRIBUTION WIDTH 13.2 % (12.0-15.0); WHITE BLOOD COUNT 7.5 x10^3/uL (4.8-10.8)
[2018-02-18 12:26] LABS: BILIRUBIN,URINE NEGATIVE (NEGATIVE); CLARITY,URINE CLEAR (CLEAR); GLUCOSE, URINE (UA) NEGATIVE (NEGATIVE); KETONES,URINE (UA) NEGATIVE (NEGATIVE); LEUKOCYTE ESTERASE, URINE NEGATIVE (NEGATIVE); NITRITE,URINE NEGATIVE (NEGATIVE); OCCULT BLOOD,URINE NEGATIVE (NEGATIVE); PROTEIN,URINE NEGATIVE (NEGATIVE); RBC,URINE 0-5 /HPF (0-5); UROBILINOGEN,URINE 0.2 (NORMAL) E.U./dL (NORMAL)
[2018-02-18 12:27] LABS: BACTERIA,URINE Rare /HPF (None Seen); CREATININE,URINE 29.9 mg/dL; SQUAMOUS EPITHELIAL CELL,UR RARE Squamous (<= Few)
[2018-02-18 12:30] LABS: TOTAL PROTEIN,URINE TIMED < 6 mg/dL
== END 2018-02-18 11:16 | disposition home or self-care (01) ==
LOC: LAB 11:15
PROVIDERS: ATTEND Obstetrics & Gynecology
DX: Z13.6 Encounter for screening for cardiovascular disorders (principal)
CPT/HCPCS: 36415; 80053; 81001; 82570; 83615; 84156; 85027

== ENCOUNTER 2018-02-28 08:30 | Outpatient (CLI) | payer MEDICAID ==
[2018-02-28 08:55] LABS: ALBUMIN 3.3 g/dL (3.2-5.5); ALKALINE PHOSPHATASE 51 IU/L (42-121); ALT ALANINE AMINOTRANSFERASE 13 IU/L (10-60); AST ASPARTATE AMINOTRANSFERASE 17 IU/L (10-42); BILIRUBIN,TOTAL < 0.2 mg/dL (0.2-1.0); BUN - BLOOD UREA NITROGEN 16 mg/dL (6-20); CALCIUM 8.6 mg/dL (8.5-10.3); CARBON DIOXIDE - CO2 23 mmol/L (21-32); CHLORIDE 104 mmol/L (101-111); CREATININE 0.5 mg/dL (0.4-1.0); GFR - MDRD 181 (>89); GLUCOSE 91 mg/dL (70-100); SODIUM 134 mmol/L (135-145); TOTAL PROTEIN 6.7 g/dL (6.7-8.2)
== END 2018-02-28 08:31 | disposition home or self-care (01) ==
LOC: LAB 08:30
PROVIDERS: ATTEND Obstetrics & Gynecology
DX: Z13.6 Encounter for screening for cardiovascular disorders (principal)
CPT/HCPCS: 36415; 80053

== ENCOUNTER 2018-03-20 11:16 | Outpatient (CLI) | payer MEDICAID ==
[2018-03-20 12:35] LABS: HGB - HEMOGLOBIN 11.4 g/dL (12.0-16.0); MEAN CORPUSCULAR HGB CONC 34.7 g/dL (32.0-36.0); MEAN CORPUSCULAR VOLUME 92.2 fL (81.0-99.0); MEAN PLATELET VOLUME 8.7 fL (7.9-10.8); RED BLOOD COUNT 3.55 10^6/uL (4.20-5.40); WHITE BLOOD COUNT 7.6 x10^3/uL (4.8-10.8)
== END 2018-03-20 11:17 | disposition home or self-care (01) ==
LOC: LAB 11:16
PROVIDERS: ATTEND Obstetrics & Gynecology
DX: O09.899 Supervision of other high risk pregnancies, unspecified trimester (principal); Z67.90 Unspecified blood type, Rh positive
CPT/HCPCS: 36415; 81599; 82950; 85027; 86850; 86870; 86886

== ENCOUNTER 2018-05-23 08:00 | Outpatient (CLI) | payer MEDICAID ==
[2018-05-23 13:09] LABS: BASOPHILS % (AUTO) 0.2 %; EOSINOPHILS # (AUTO) 0.1 10^3/uL (0.0-0.7); HGB - HEMOGLOBIN 11.8 g/dL (12.0-16.0); LYMPHOCYTES # (AUTO) 1.6 10^3/uL (1.5-3.5); LYMPHOCYTES % (AUTO) 20.7 %; MEAN CORPUSCULAR HEMOGLOBIN 31.8 pg (27.0-31.0); MEAN CORPUSCULAR HGB CONC 34.7 g/dL (32.0-36.0); MEAN CORPUSCULAR VOLUME 91.8 fL (81.0-99.0); MONOCYTES # (AUTO) 0.7 10^3/uL (0.0-1.0); MONOCYTES % (AUTO) 9.4 %; NEUTROPHILS # (AUTO) 5.4 10^3/uL (1.5-6.6); NEUTROPHILS % (AUTO) 68.7 %; PLT - PLATELET COUNT 168 10^3/uL (130-450); RED BLOOD COUNT 3.72 10^6/uL (4.20-5.40); RED CELL DISTRIBUTION WIDTH 12.9 % (12.0-15.0); WHITE BLOOD COUNT 7.8 x10^3/uL (4.8-10.8)
[2018-05-23 13:15] LABS: CREATININE 0.4 mg/dL (0.4-1.0)
[2018-05-23 13:25] LABS: CREATININE,URINE 96.5 mg/dL
== END 2018-05-23 23:59 | disposition home or self-care (01) ==
LOC: LAB.N 08:00
PROVIDERS: ATTEND Obstetrics & Gynecology
DX: R03.0 Elevated blood-pressure reading, without diagnosis of hypertension (principal); Z33.1 Pregnant state, incidental
CPT/HCPCS: 36415; 82565; 82570; 83615; 84156; 84450; 84550; 85025

== ENCOUNTER 2018-06-10 08:00 | Outpatient (CLI) | payer MEDICAID | END 2018-06-10 23:59 | disposition home or self-care (01) | LOC: LAB.R 08:00 | PROVIDERS: ATTEND Obstetrics & Gynecology | DX: Z33.1 Pregnant state, incidental (principal) | CPT/HCPCS: 87491; 87591; 87797 ==

== ENCOUNTER 2018-06-19 11:57 | Outpatient (CLI) | payer MEDICAID ==
[2018-06-19 12:15] LABS: BASOPHILS % (AUTO) 0.3 %; EOSINOPHILS % (AUTO) 0.6 %; HGB - HEMOGLOBIN 12.3 g/dL (12.0-16.0); LYMPHOCYTES # (AUTO) 1.4 10^3/uL (1.5-3.5); MEAN CORPUSCULAR HEMOGLOBIN 31.5 pg (27.0-31.0); MEAN CORPUSCULAR HGB CONC 34.3 g/dL (32.0-36.0); MEAN PLATELET VOLUME 9.3 fL (7.9-10.8); MONOCYTES # (AUTO) 0.7 10^3/uL (0.0-1.0); MONOCYTES % (AUTO) 9.7 %; NEUTROPHILS # (AUTO) 5.3 10^3/uL (1.5-6.6); NEUTROPHILS % (AUTO) 70.4 %; PLT - PLATELET COUNT 173 10^3/uL (130-450); RED CELL DISTRIBUTION WIDTH 12.9 % (12.0-15.0); WHITE BLOOD COUNT 7.5 x10^3/uL (4.8-10.8)
== END 2018-06-19 11:58 | disposition home or self-care (01) ==
LOC: LAB 11:57
PROVIDERS: ATTEND Obstetrics & Gynecology
DX: Z01.812 Encounter for preprocedural laboratory examination (principal); O34.219 Maternal care for unspecified type scar from previous cesarean delivery
CPT/HCPCS: 36415; 85025; 86850; 86870; 86900; 86901; 86920; 86922

== ENCOUNTER 2018-06-20 05:32 | Inpatient (IN) | payer MEDICAID ==
--- NOTE | 2018-06-19 14:38 | PREOP HISTORY & PHYSICAL ---
DATE OF SERVICE: 06/20/2018 Physician: Vivian Jack DO IDENTIFICATION: This is a 27-year-old G3, P1-0-1-1 with a 37-3/7-week intrauterine . HISTORY OF PRESENT ILLNESS: Patient presents today for a routine OB visit, 37 weeks 2 days. There h ad been some miscommunication with patient in terms of where she should be delivered at. Patient bell s have a significant history. Though she has cerebral palsy, it is currently stable. More important ly, she has had 2 issues with this . The first issue was that she had the Diaz antibody an d was worked up by the Maternal Medicine doctors. 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 This was last performed on 04/16/2018. Because of that finding, I recommended that patient be transferred to [facility] for delivery as here at [facility], we do not have a formal NICU. In addition, ananth osullivan has had a history of a classical delivery. It was recommended by Dr. Luis Hawk for gamaliel cobb to have delivery at 37 weeks in order to avoid any labor on the uterus, which could lead to jeremiah strophic uterine abruption and hemorrhage. I have not seen patient in quite a while. Her most recen t visit with myself was in February, specifically on 03/20/2018. I have been following patient perip herally, but have not seen her since then. Her last visit was with Dr. Lee hayes in the office on . Currently, patient is doing well and denies any nausea, vomiting, fevers or chills. She is feeling v brody and is excited to eventually get delivered. She states that the baby's name is Kristine parks nd she is moving well. She denies any vaginal bleeding or rupture of membranes. Her GBS test at her last visit was negative. heart tones are reassuring at 154 today. The baby is vertex with a grossly normal ELKE. I discussed with patient that we should proceed immediately to a delivery tomorrow. Again, I counseled patient that Maternal Medicine physicians recommend this in order to avoid catastro phic bleeding and comorbidities due to uterine rupture. I discussed with patient the risks, benefits , alternatives, indications and expectations of a delivery. Our discussion included, but wa s not limited to, infection, hemorrhage and damage to surrounding organs, which may be an inadvertent laceration, cauterization or ligation of adjacent intestines, ureters and bladder. After all of gamaliel cobb's questions were answered to her satisfaction, she verbalized her desire to proceed with surgery . Consent forms have been signed today. PAST MEDICAL HISTORY 1. Cerebral palsy. 2. History of seizures as a baby. 3. History of gestational hypertension. 4. Depression. 5. Status post transfusion of blood leading to current Diaz antibody. PAST SURGICAL HISTORY 1. delivery x1 in [place], [place], for failed vaginal after delivery of son. This was on 04/29/2009. 2. Hysterotomy at 4 weeks' gestation for molar at 4 weeks' gestation. ALLERGIES: NO KNOWN DRUG ALLERGIES. MEDICATIONS: vitamins. SOCIAL HISTORY: She denies any tobacco, alcohol or illicit drug use. 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 This is a baby girl with anticipated name of Yan pena. Father of her baby is Nikhil. This is his first child. Nikhil is currently not working. PAST OBSTETRICAL HISTORY 1. One term delivery. 2. Molar with hysterotomy for evacuation of the . 3. Current 12/19/2017 labs show that patient is A+ and positive for the antibody anti-Fya. On 04/02, she was seen at [facility] in [place] by Dr. Ronna Gutiérrez. The baby at that time had an estimated weight in the 11th percentile with improved interval growth. There was no ev idence of hydrops. The patient was isoimmunized with a critical threshold of 1:16. Do not nee d to follow Diaz titers as she has already reached the critical titer threshold. Recommend MCA Dopp ler surveillance every week and then increase weekly if it becomes elevated at 1.37 cm per second or above. On 04/16/2018, MFM visit with Dr. Luis Hawk at [facility] showed borderline MCAs. Due to transportation, scheduled for repeat MCAs and followup consultation at [facility]. Guillerminae nt should have a planned repeat delivery at 37 weeks. PAST GYNECOLOGICAL HISTORY: She denies any abnormal Pap smears or sexually transmitted diseases. FAMILY HISTORY: Noncontributory. PHYSICAL EXAMINATION VITAL SIGNS: Height is 60.25 inches, weight 149.7 pounds, BMI 29. Blood pressure 128/80. GENERAL: Patient is a well-developed female, in no apparent distress. Patient is v brody pleasant and easy to speak to. Patient does grossly have some contractures secondary to cerebral palsy. HEENT: Within normal limits. CARDIOVASCULAR: Regular. No murmurs or rubs. PULMONARY: Lungs clear to auscultation bilaterally. ABDOMEN: Gravid, nontender. Fundal height is 37 cm. Baby is vertex by bedside ultrasound with eugenia sly normal ELKE. LABORATORY DATA: On 12/19/2017, white count 7.7, H and H of 11.5 and 33.8, platelets 258. Rubella i mmune. Hepatitis B is negative as well as HIV, RPR and hepatitis C. She is A+, anti-Diaz antibody positive. Quad screen was negative x3. DIAGNOSTIC DATA: On 12/19/2017, first trimester ultrasound with LMP of 10/10/2017, giving an EDC of 07/17/2018 at 10 weeks 0 days is consistent with the ultrasound, which showed a single viable intraut erine measuring 11 weeks 2 days with an EDC of 07/08/2018. ASSESSMENT 1. A 27-year-old G3, P1-0-1-1 with a 37-3/7-week intrauterine . 2. Prior hysterotomy x1 and delivery x1. 3. Borderline middle cerebral arteries. 4. Isoimmunization for anti-Diaz antibody. PLAN 1. We will proceed to a scheduled repeat delivery tomorrow on 06/20/2018. We will need Ped iatrics there at delivery, given the MCA results. 2. Abruption precautions given to patient. 3. Patient to do a CBC. They have returned showing a white count of 7.5, hemoglobin and hematocrit of 12.3 and 35.7, platelets 173. 4. Patient signed consent form. 5. Anticipate patient returning next week on for removal of Prevena wound V.A.C. TD: 06/19/2018 13:30
[2018-06-20] MEDS ORDERED: SODIUM CHLORIDE FLUSH 0.9% 10 ML SYRINGE ONE (08:55)
[2018-06-20] MEDS ORDERED: LACTATED RINGERS 1,000 ML IV ONE (08:55)
[2018-06-20] MEDS ORDERED: SODIUM CHLORIDE FLUSH 0.9% 10 ML SYRINGE IVP PRN (09:03)
[2018-06-20] MEDS ORDERED: LACTATED RINGERS 1,000 ML IV SCH (10:00)
--- NOTE | 2018-06-20 12:37 | PROVIDER PROGRESS NOTE ---
Subjective - Prog Note Date Prog Note Date: 06/20/18 (PETROLEUM REFINING FIRER) Prog Note Time: 12:36 - Subjective Subjective: TRANSFER SUMMARY DICTATION # [id number]
[2018-06-20 13:13] VITALS: BP 118/70
--- NOTE | 2018-06-22 10:55 | DISCHARGE SUMMARY ---
Physician: Aurelio Hogan DO DATE OF ADMISSION: 06/20/2018 DATE OF DISCHARGE: 06/20/2018 TRANSFER SUMMARY HISTORY OF PRESENT ILLNESS: This patient is a 28-year-old female, 3, para 1, with a due date of 07/08/2018, who is 37 and 3/7 weeks' gestation based on an 11-week ultrasound, who has multiple medical and obstetrical issues this , which are as follows: 1. Cerebral palsy. 2. Prior section, at 37 weeks in 2009, that was productive of a 6- pound 8-ounce . 3. Partial molar at 18-19 weeks' gestation in 2011, requiring laparotomy and vertical uterine incision for removal of said . The patient subsequently had to be re-operated on to remove fluid from the abdomen on two different occasions during that hospitalization. She reports having been in ICU for 7 days and discharged from the hospital after one month. 4. This has been notable for IUGR, for which she has seen the [facility] at [facility] in [place] several times this . 5. Positive Diaz antibody (father of the baby was tested and was found to be negative). 6. Positive history of Trichomonas psoriasis and treatment for Trichomonas needing proof of test of cure. 7. She has a history of possible antibody, for which the patient would require being typed and crossed for Fya negative blood by the blood bank at the time of delivery. 8. With regard to her IUGR workup this , the patient was seen by the MFM service at [facility] on 02/21/2018, and MCA MOM was 1.09. On 03/18/2018 at 24 weeks' gestation, the estimated weight was 3rd percentile, with normal amniotic fluid and normal umbilical artery and middle cerebral artery Dopplers, with the Diaz titers at that time 1 in 16. On 05/03/2017, she was seen again at 26 weeks' gestation, the estimated weight at that time was 11th percentile, with an abdominal circumference at the 32nd percentile, ELKE of 11.5, posterior placenta, no previa, and middle cerebral artery was 1.15. The patient was supposed to undergo monitoring every 1-2 weeks with the MFM group in [facility]; however, she was lost to followup due to difficulties with transportation. Patient was seen one last time, on 04/16/2018 at 28 weeks, at which time her middle cerebral artery was borderline at 1.44-1.59, with no evidence of hydrops at that time. She was offered followup in 2 days but was unable to make that appointment, again due to transportation issues. She was scheduled to be seen on 04/23/2018 but did not keep that appointment. Again, as previously stated, the father of the baby was tested for Diaz phenotype and was noted to be negative. The patient presented to [facility] on 06/19/2018. Maternal Medicine had recommended that the patient undergo repeat section at 37 weeks, given her prior classical uterine incision with her molar , and the patient is therefore being transferred to a medical center with Maternal- Medicine and NICU capabilities, as she has not had any ultrasound and middle cerebral artery surveillance in 2-1/2 months. The hotel general manager construction area manager likewise is not supportive of the patient delivering at this facility because of the 37 weeks' gestation and history of IUGR and borderline Doppler studies. PAST MEDICAL HISTORY: The patient's medical history is primarily notable for, as previously stated, her cerebral palsy and her positive antibodies. ALLERGIES: SHE HAS NO KNOWN DRUG ALLERGIES. SOCIAL HISTORY: Negative. PHYSICAL EXAMINATION Physical exam is unremarkable. Her vital signs are stable and afebrile. GENERAL: She is alert and oriented x3. LUNGS: Unremarkable. CARDIOVASCULAR: Regular rate and rhythm. ABDOMEN: Soft, nontender. PELVIC: Uterus is gravid consistent with dates. Cervical exam was not performed at the time of transfer. MUSCULOSKELETAL: Neuromuscular exam was unremarkable with no calf pain, edema or tenderness, and normal lower extremity pulses. LABORATORY/DATA Her laboratory data for this is as follows: GC, chlamydia and Pap smear were all performed on 12/12/2017. Pap smear was normal. GC and chlamydia were negative. Her blood type is A positive. Her HIV 1 on 12/19/2017 was negative. All of these tests were done on 12/19/2017. Her rubella was reactive. Hepatitis B surface antigen nonreactive. HIV 2 was negative. The patient had sequential screening done, which was negative, and she also received her flu vaccine on , as well as having received her TDAP vaccine during the per her history. GBS culture was negative, and that was performed on 06/10/2018. The patient's height is 60 0.25 inches with a weight of 149.7 pounds, and again normotensive, blood pressure 128/80. Further evaluation of the patient on Labor and Delivery showed a category 1 heart rate tracing with a rare contraction, approximately 1 per hour, which the patient does not feel. Bedside ultrasound performed by ok showed an ELKE of 8.90 cm with vertical pockets of 1.75, 1.80, 3.15, and 2.20 cm. The fetus was noted to be in a vertex presentation. The placenta was posterior. A CBC was drawn on 06/19/2018, which showed a white count of 7.5, hemoglobin and hematocrit of 12.3, 35.9; and platelet count of 173,000. DISPOSITION IS FOLLOWS: Given the history above, and Pediatrics declining for the patient to deliver here electively, arrangements have been made for transfer to [facility] in [place]. Dr. Lakeisha Celis, Maternal Medicine, has accepted transfer of the patient. Attempts were made to transfer this patient to [facility] in [place]; however, due to staffing issues, that was not feasible, and hence the patient is being transferred to [facility] in [place] by ground ambulance. Copies of [facility] medical records and [facility] records have been made for the providers in [facility]. The patient understands her condition, and all questions have been answered. Upon arrival at [facility], the patient will undergo further evaluation and determinations about the appropriate time to deliver by repeat section. DIAGNOSES 1. 37 weeks' gestation. 2. Intrauterine growth restriction. 3. Prior classical uterine incision. 4. Cerebral palsy. 5. Positive Diaz antibody. 6. Prior molar . 7. History of Trichomonas, needing test of cure. FAX ___ TD: 06/20/2018 13:00 KRISTINA
== END 2018-06-20 13:30 | disposition short-term general hospital (02) | DRG 832 ==
LOC: UNDOADMIN 05:32 → FBP 05:32
PROVIDERS: ADMIT Obstetrics & Gynecology; ATTEND Obstetrics & Gynecology
DX: O36.5930 Maternal care for other known or suspected poor fetal growth, third trimester, not applicable or unspecified (principal); O98.313 Other infections with a predominantly sexual mode of transmission complicating pregnancy, third trimester; N85.8 Other specified noninflammatory disorders of uterus; O99.353 Diseases of the nervous system complicating pregnancy, third trimester; G80.9 Cerebral palsy, unspecified; O36.1930 Maternal care for other isoimmunization, third trimester, not applicable or unspecified; O34.212 Maternal care for vertical scar from previous cesarean delivery; O09.293 Supervision of pregnancy with other poor reproductive or obstetric history, third trimester; Z3A.37 37 weeks gestation of pregnancy; Z86.79 Personal history of other diseases of the circulatory system; Z86.59 Personal history of other mental and behavioral disorders

== ENCOUNTER 2018-08-22 07:09 | Emergency (ER) | payer MEDICAID ==
[2018-08-22 07:25] VITALS: BP 147/89
[2018-08-22] MEDS ORDERED: MAG HYDROX/AL HYDROX/SIMETH 30 ML UDC PO STA (08:21)
--- NOTE | 2018-08-22 08:29 | ED Physician Documentation ---
PD HPI ABD PAIN - Stated complaint Stated Complaint: N/V/D - Chief complaint Chief Complaint: General - History obtained from History obtained from: Patient - History of Present Illness Timing - onset: Today Timing - details: Other (Now better.) Pain level max: 6 Pain level now: 3 Location: Epigastric Associated symptoms: Vomiting (once) Similar symptoms before: Has not had sx before - Additional information Additional information: The patient is a 28-year-old female who had one episode of vomiting at 2 AM today. She reported associated abdominal discomfort prior to the vomiting. Her pain is better now. At its worst she rated it 6 out of 10 in severity, and now she rates it 3 out of 10 in severity, located in the epigastric region. In addition to vomiting once yesterday she had diarrhea x2 two days ago. Her son has been sick with similar symptoms. She denies fever, or dysuria. Her last menstrual period was 2 weeks ago. Review of Systems Constitutional: denies: Fever Eyes: denies: Irritation Ears: denies: Tinnitus/ringing Nose: denies: Congestion Throat: denies: Sore throat Cardiac: denies: Chest pain / pressure Respiratory: denies: Dyspnea, Cough GI: reports: Abdominal Pain (mild epigastric), Vomiting (once), Diarrhea (two days ago.) : reports: LMP (2 weeks ago.). 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 - Present Medications Home Medications: Ambulatory Orders Medication Instructions Recorded Confirmed Pnv No.121/Iron/Folic Acid 1 each PO DAILY #30 tablet 11/18/17 [ Multivitamin Tablet] Pyridoxine HCl [Vitamin B-6] 25 mg PO Q8H PRN #10 tablet 11/18/17 - Allergies Allergies/Adverse Reactions: Allergies Allergy/AdvReac Type Severity Reaction Status Date / Time No Known Drug Allergies Allergy Verified 11/18/17 14:12 - Social History Does the pt smoke?: No Smoking Status: Never smoker Does the pt drink ETOH?: No Does the pt have substance abuse?: No - Immunizations Immunizations are current?: Yes - POLST Patient has POLST: No PD ED PE NORMAL - Vitals Vital signs reviewed: Yes (Initially hypertensive.) - General General: Alert and oriented X 3, Well developed/nourished - HEENT HEENT: Atraumatic, EOMI, Ears normal, Pharynx benign - Neck Neck: Supple, no meningeal sign, No adenopathy - Cardiac Cardiac: RRR - Respiratory Respiratory: No respiratory distress, Clear bilaterally - Abdomen Abdomen: Normal bowel sounds, Soft, Other (Mild tenderness to palpation in the epigastric region, without rebound or guarding.) - Back Back: No CVA TTP - Derm Derm: No rash - Extremities Extremities: No edema, No calf tenderness / cord - Neuro Neuro: Alert and oriented X 3, No motor deficit, Normal speech Results - Vitals Vitals: Vital Signs - 24 hr 08/22/18 07:23 Temperature 36.5 C Heart Rate 71 Respiratory 16 Rate Blood Pressure 147/89 H O2 Saturation 99 Oxygen O2 Source Room air PD MEDICAL DECISION MAKING - ED course Complexity details: re-evaluated patient, considered differential, d/w patient ED course: The patient's presentation is most consistent with viral gastroenteritis. Her presentation does not suggest appendicitis, biliary colic, or pancreatitis. Treatment in the emergency department included administration of Maalox 30 mL orally. This relieved her epigastric discomfort. I discussed with her the expected course of illness, symptomatic treatment and outpatient follow-up, as well as potentially worrisome signs or symptoms that should prompt reevaluation in the emergency department. Departure - Departure Disposition: 01 Home, Self Care Clinical Impression: Viral gastroenteritis Condition: Stable Instructions: ED Gastroenteritis Viral Follow-Up: Delbert Sethi MD [Primary Care Provider] - Comments: Drink plenty of fluids. You can use Maalox or Mylanta if needed for epigastric discomfort. Follow-up with your primary physician within 1 to 2 weeks if not completely resolved. Return to the emergency department if you develop increasing abdominal pain, persistent vomiting, or otherwise worsening symptoms.
== END 2018-08-22 08:44 | disposition home or self-care (01) ==
LOC: ED 07:09
DX: A08.4 Viral intestinal infection, unspecified (principal); I10 Essential (primary) hypertension
CPT/HCPCS: 99282; A9270

== ENCOUNTER 2018-11-05 08:00 | Outpatient (CLI) | payer MEDICAID ==
[2018-11-05 19:18] LABS: TRICHOMONAS VAGINALIS DNA NEGATIVE (NEGATIVE)
== END 2018-11-05 23:59 | disposition home or self-care (01) ==
LOC: LAB.R 08:00
PROVIDERS: ATTEND Obstetrics & Gynecology
DX: Z30.9 Encounter for contraceptive management, unspecified (principal)
CPT/HCPCS: 87491; 87591; 87661

== ENCOUNTER 2018-12-09 10:27 | Emergency (ER) | payer MEDICAID ==
[2018-12-09 10:42] VITALS: BP 148/105
[2018-12-09 11:05] LABS: BILIRUBIN,URINE NEGATIVE (NEGATIVE); GLUCOSE, URINE (UA) NEGATIVE (NEGATIVE); KETONES,URINE (UA) NEGATIVE (NEGATIVE); LEUKOCYTE ESTERASE, URINE NEGATIVE (NEGATIVE); NITRITE,URINE NEGATIVE (NEGATIVE); OCCULT BLOOD,URINE SMALL (NEGATIVE); PROTEIN,URINE NEGATIVE (NEGATIVE); UROBILINOGEN,URINE 0.2 (NORMAL) E.U./dL (NORMAL)
[2018-12-09 11:15] LABS: CLARITY,URINE CLEAR (CLEAR)
[2018-12-09 11:21] LABS: BACTERIA,URINE Rare /HPF (None Seen); RBC,URINE 0-5 /HPF (0-5); SQUAMOUS EPITHELIAL CELL,UR FEW Squamous (<= Few)
--- NOTE | 2018-12-09 11:42 | ED Physician Documentation ---
PD HPI FEMALE - Stated complaint Stated Complaint: FEMALE - Chief complaint Chief Complaint: UTI - History obtained from History obtained from: Patient - History of Present Illness Timing - onset: How many days ago (3) Timing - duration: Days (3) Timing - details: Gradual onset, Still present Associated symptoms: Dysuria, Urinary frequency Contributing factors: No: Similar symptoms before: Diagnosis (UTI) Recently seen: Not recently seen - Additional information Additional information: 28-year-old female has developed urinary urgency frequency and dysuria with some burning that takes about 20 to 30 minutes to resolve after she urinates. She states that she has noted her urine to be cloudy and she has had symptoms for about 3 days. She is been drinking a lot of extra fluids and despite this it is not cleared up. She does have some pain in her right side that is mild. She is not nauseous she has had some chills but no fever. She denies any sores in the genital areas or blisters. Review of Systems Constitutional: reports: Chills. denies: Fever Eyes: denies: Decreased vision Ears: denies: Ear pain Nose: denies: Congestion Throat: denies: Sore throat Respiratory: denies: Cough GI: denies: Abdominal Pain, Nausea, Vomiting : reports: Dysuria, Frequency Skin: denies: Rash Musculoskeletal: reports: Back pain. 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 - Present Medications Home Medications: Ambulatory Orders Medication Instructions Recorded Confirmed Pnv No.121/Iron/Folic Acid 1 each PO DAILY #30 tablet 11/18/17 [ Multivitamin Tablet] Pyridoxine HCl [Vitamin B-6] 25 mg PO Q8H PRN #10 tablet 11/18/17 Sulfamethoxazole/Trimethoprim 1 each PO BID #6 tablet 12/09/18 [Sulfamethoxazole-Tmp Ds Tablet] - Allergies Allergies/Adverse Reactions: Allergies Allergy/AdvReac Type Severity Reaction Status Date / Time No Known Drug Allergies Allergy Verified 12/09/18 10:42 - Social History Does the pt smoke?: No Smoking Status: Never smoker Does the pt drink ETOH?: No Does the pt have substance abuse?: No - Immunizations Immunizations are current?: Yes - POLST Patient has POLST: No PD ED PE NORMAL - Vitals Vital signs reviewed: Yes (hypertensive ) - General General: Alert and oriented X 3, No acute distress, Well developed/nourished - HEENT HEENT: Atraumatic, PERRL, EOMI - Respiratory Respiratory: No respiratory distress - Back Back: No spinal TTP, Other (There is mild tenderness to the right CVA) - Derm Derm: Normal color, Warm and dry, No rash - Neuro Neuro: Alert and oriented X 3, 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, No motor deficit, No sensory d eficit, Normal speech Eye Opening: Spontaneous Motor: Obeys Commands Verbal: Oriented GCS Score: 15 - Psych Psych: Normal mood, Normal affect Results - Vitals Vitals: Vital Signs - 24 hr 12/09/18 10:41 Temperature 36.6 C Heart Rate 85 Respiratory 18 Rate Blood Pressure 148/105 H O2 Saturation 98 Oxygen O2 Source Room air - Labs Labs: Laboratory Tests 12/09/18 10:48 Urine Color YELLOW Urine Clarity CLEAR Urine pH 7.0 Ur Specific Mcgregor 1.020 Urine Protein NEGATIVE Urine Glucose (UA) NEGATIVE Urine Ketones NEGATIVE Urine Occult Blood SMALL H Urine Nitrite NEGATIVE Urine Bilirubin NEGATIVE Urine Urobilinogen 0.2 (NORMAL) Ur Leukocyte Esterase NEGATIVE Urine RBC 0-5 Urine WBC 0-3 Ur Squamous Epith Cells FEW Squamous Urine Bacteria Rare Ur Microscopic Review INDICATED Urine Culture Comments NOT INDICATED PD MEDICAL DECISION MAKING - ED course Complexity details: reviewed results, re-evaluated patient, considered differential, d/w patient ED course: 28-year-old female with definite urinary tract symptoms similar to what she has had previously with urinary tract infection has a benign appearing urine. She is treated empirically with Septra. Departure - Departure Disposition: 01 Home, Self Care Clinical Impression: Cystitis Condition: Stable Instructions: ED UTI Cystitis Female Follow-Up: Logan Howard MD [Primary Care Provider] - Prescriptions: Sulfamethoxazole/Trimethoprim [Sulfamethoxazole-Tmp Ds Tablet] 1 each PO BID #6 tablet
[2018-12-09 13:02] LABS: HCG UR QUAL NEGATIVE
== END 2018-12-09 11:50 | disposition home or self-care (01) ==
LOC: ED 10:27
DX: N30.90 Cystitis, unspecified without hematuria (principal); I10 Essential (primary) hypertension
CPT/HCPCS: 81001; 81003; 81025; 87086; 99283; 99284

== ENCOUNTER 2019-03-05 07:00 | Outpatient (CLI) | payer MEDICAID | END 2019-03-05 23:59 | disposition home or self-care (01) | LOC: LAB.R 07:00 | PROVIDERS: ATTEND Registered Nurse | DX: N39.0 Urinary tract infection, site not specified (principal) | CPT/HCPCS: 87086 ==

== ENCOUNTER 2020-06-16 13:37 | Emergency (ER) | payer MEDICAID ==
[2020-06-16] MEDS ORDERED: SODIUM CHLORIDE 0.9% 1,000 ML IV STA (13:58)
[2020-06-16] MEDS ORDERED: ONDANSETRON 4 MG/2 ML VIAL IVP STA (13:58)
--- NOTE | 2020-06-16 14:12 | ED Physician Documentation ---
History of Present Illness - Stated complaint Stated Complaint: ABD PAIN - Chief complaint Chief Complaint: Abd Pain - Additonal information Additional information: 29-year-old female presents emergency department for evaluation of upper abd ominal pain bloating and diarrhea that has been present for about 1 week. She reports early CAD when she eats. Some nausea but no vomiting. She is also having about 3 watery stools a day. No melena or hematochezia. She occasionally vapes and is a daily cannabis user. Very rare alcohol use. No NSAID use. Past surgical history includes C-sections only. Patient denies dysuria, urgency, frequency, fevers, chest pain, or shortness of breath. Review of Systems Constitutional: denies: Fever, Chills Eyes: reports: Reviewed and negative Ears: reports: Reviewed and negative Nose: reports: Reviewed and negative Throat: reports: Reviewed and negative Cardiac: reports: Chest pain / pressure. denies: Palpitations, Pedal edema, Calf pain Respiratory: denies: Dyspnea, Cough GI: reports: Abdominal Pain, Nausea, Diarrhea. 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 - Present Medications Home Medications: Ambulatory Orders Medication Instructions Recorded Confirmed Pnv No.121/Iron/Folic Acid 1 each PO DAILY #30 tablet 11/18/17 [ Multivitamin Tablet] Pyridoxine HCl (Vitamin B6) 25 mg PO Q8H PRN #10 tablet 11/18/17 [Vitamin B-6] Sulfamethoxazole/Trimethoprim 1 each PO BID #6 tablet 12/09/18 [Sulfamethoxazole-Tmp Ds Tablet] Omeprazole 40 mg PO DAILY #30 06/16/20 - Allergies Allergies/Adverse Reactions: Allergies Allergy/AdvReac Type Severity Reaction Status Date / Time No Known Drug Allergies Allergy Verified 06/16/20 13:44 - Social History Does the pt smoke?: No Smoking Status: Never smoker Does the pt drink ETOH?: No Does the pt have substance abuse?: No - Immunizations Immunizations are current?: Yes - POLST Patient has POLST: No PD ED PE EXPANDED - General General: Alert, No acute distress, Well developed/nourished - Cardiac Cardiac: Regular Rate, Regular Rhythm, Radial strong equal, Pedal strong equal, Cap refill < 2 sec. No: Murmur Present - Respiratory Respiratory: Clear to ausultation halle. No: Distress, Labored - Abdomen Abdomen: Normal Bowel sounds, Tender to palpation (Very mild epigastric tenderness to palpation. Negative Bocanegra's. No rebound or guarding. Negative McBurney's. No CVA tenderness elicited. Relatively benign and reassuring abdominal exam.) - Back Back: Normal exam, CVA TTP right, CVA TTP left. No: Vertebral tenderness, Soft tissue tenderness - Derm Derm: Normal color, Warm and dry. No: Rash - Neuro Neuro: Alert and Oriented X 3, CNII-XII intact, Nystagmus, Cerebellar nl, Normal gait, Normal finger nose - GCS Eye Opening: Spontaneous Motor: Obeys Commands Verbal: Oriented Total: 15 Results - Vitals Vitals: Vital Signs - 24 hr 06/16/20 06/16/20 13:44 14:11 Temperature 37.0 C Heart Rate 86 58 L Respiratory 18 Rate Blood Pressure 144/90 H 141/82 H O2 Saturation 100 Oxygen O2 Source Room air - Labs Labs: Laboratory Tests 06/16/20 06/16/20 06/16/20 14:05 14:11 14:37 WBC 4.5 L RBC 4.04 L Hgb 12.1 Hct 37.8 MCV 93.6 MCH 30.0 MCHC 32.0 RDW 12.1 Plt Count 243 MPV 10.7 Neut # (Auto) 2.5 Lymph # (Auto) 1.6 Harney # (Auto) 0.3 Eos # (Auto) 0.1 Baso # (Auto) 0.0 Absolute Nucleated RBC 0.00 Nucleated RBC % 0.0 Sodium 133 L Potassium 4.5 Chloride 98 L Carbon Dioxide 25 Anion Gap 10.0 BUN 19 Creatinine 0.6 Estimated GFR (MDRD) 144 Glucose 88 Calcium 8.7 Total Bilirubin 1.1 H AST 28 ALT 23 Alkaline Phosphatase 46 Total Protein 7.0 Albumin 4.0 Globulin 3.0 Albumin/Globulin Ratio 1.3 Lipase 22 Urine Color YELLOW Urine Clarity CLEAR Urine pH 7.0 Ur Specific Whitney 1.020 Urine Protein NEGATIVE Urine Glucose (UA) NEGATIVE Urine Ketones NEGATIVE Urine Occult Blood NEGATIVE Urine Nitrite NEGATIVE Urine Bilirubin NEGATIVE Urine Urobilinogen 0.2 (NORMAL) Ur Leukocyte Esterase NEGATIVE Ur Microscopic Review NOT INDICATED Urine Culture Comments NOT INDICATED Urine HCG, Qual NEGATIVE - Rads (name of study) ABD US Radiology: See rad report, Other (Per technologist gallbladder wall within normal limits. Multiple mobile stones. 5 mm CBD. Common hepatic duct less than 2 mm.) PD MEDICAL DECISION MAKING - ED course Complexity details: reviewed results, re-evaluated patient, considered differential, d/w patient ED course: 29-year-old female presents the emergency department for evaluation of upper abdominal pain early CAD and bloating. No vomiting. However she does endorse diarrhea for about 1 week. She is concerned because she reports a very bad diet. Screening labs are all essentially unremarkable. No leukocytosis. No LFT abnormalities. Urine does not show signs of infection. We did do an abdominal ultrasound showed multiple mobile gallstones without secondary findi ngs suggestive of cholecystitis. Findings were discussed with patient. Will refer to outpatient surgical clinic. Recommend improve diet and avoidance of processed or fatty foods. Will start patient on omeprazole. Emergent return precautions discussed for worsening symptoms. Departure - Departure Disposition: 01 Home, Self Care Clinical Impression: Gallstones Condition: Stable Record reviewed to determine appropriate education?: Yes Instructions: Gallstones Dc Follow-Up: Lala Vela MD [Provider Admit Priv/Credential] - Prescriptions: Omeprazole 40 mg PO DAILY #30 Comments: Key you were seen in the emergency department today for upper abdominal discomfort and bloating. Your labs today are all essentially normal. We did do an ultrasound and do find that you have gallstones within your gallbladder but no findings suggestive of inflammation of the gallbladder. I do recommend that you improve your diet and avoid fried or fatty greasy foods. This can cause gallbladder pain. I would like you to start taking omeprazole. This can help with stomach upset. Please schedule a follow-up appointment with our surgical clinic. I have referred you to Dr. Ackerman. If at any point you have suddenly severe or different abdominal pain, uncontrolled vomiting, fevers black or bloody stools please return immediately to the emergency department.
[2020-06-16 14:16] LABS: BILIRUBIN,URINE NEGATIVE (NEGATIVE); GLUCOSE, URINE (UA) NEGATIVE (NEGATIVE); KETONES,URINE (UA) NEGATIVE (NEGATIVE); LEUKOCYTE ESTERASE, URINE NEGATIVE (NEGATIVE); NITRITE,URINE NEGATIVE (NEGATIVE); OCCULT BLOOD,URINE NEGATIVE (NEGATIVE); PROTEIN,URINE NEGATIVE (NEGATIVE); UROBILINOGEN,URINE 0.2 (NORMAL) E.U./dL (NORMAL)
[2020-06-16 14:17] LABS: BASOPHILS % (AUTO) 0.2 %; EOSINOPHILS # (AUTO) 0.1 10^3/uL (0.0-0.7); EOSINOPHILS % (AUTO) 1.3 %; HGB - HEMOGLOBIN 12.1 g/dL (12.0-16.0); LYMPHOCYTES # (AUTO) 1.6 10^3/uL (1.5-3.5); LYMPHOCYTES % (AUTO) 36.7 %; MEAN CORPUSCULAR VOLUME 93.6 fL (81.0-99.0); MEAN PLATELET VOLUME 10.7 fL (7.9-10.8); MONOCYTES # (AUTO) 0.3 10^3/uL (0.0-1.0); MONOCYTES % (AUTO) 6.3 %; NEUTROPHILS # (AUTO) 2.5 10^3/uL (1.5-6.6); NEUTROPHILS % (AUTO) 55.3 %; PLT - PLATELET COUNT 243 10^3/uL (130-450); RED BLOOD COUNT 4.04 10^6/uL (4.20-5.40); RED CELL DISTRIBUTION WIDTH 12.1 % (12.0-15.0); WHITE BLOOD COUNT 4.5 x10^3/uL (4.8-10.8)
[2020-06-16 14:18] LABS: CLARITY,URINE CLEAR (CLEAR); HCG UR QUAL NEGATIVE
[2020-06-16 14:58] LABS: ALBUMIN/GLOBULIN RATIO 1.3 (1.0-2.2); BILIRUBIN,TOTAL 1.1 mg/dL (0.2-1.0); CALCIUM 8.7 mg/dL (8.5-10.3); CREATININE 0.6 mg/dL (0.4-1.0)
[2020-06-16 15:55] VITALS: BP 139/80
--- NOTE | 2020-06-16 16:10 | Ultrasound Report ---
PROCEDURE: Abdomen Limited INDICATIONS: eval for biliary colic TECHNIQUE: Real-time focused scanning was performed of the abdomen, with image documentation. COMPARISON: None FINDINGS: Liver is normal in size measuring 14.7 cm. The gallbladder demonstrates stones. Wall thickness is wit hin normal limits measuring 0.1 mm. No biliary dilation. Common bile duct measures 5.3 mm. Visualized portions of the pancreas are unremarkable. Right kidney measures 11.1 cm. IMPRESSION: Cholelithiasis without imaging evidence of cholecystitis. Reviewed by: Sveta Corrales MD on 06/16/2020 3:08 PM [facility] Approved by: Sveta Corrales MD on 06/16/2020 3:08 PM [facility] Station ID: [id number]
== END 2020-06-16 15:54 | disposition home or self-care (01) ==
LOC: ED 13:37
DX: K80.20 Calculus of gallbladder without cholecystitis without obstruction (principal); I10 Essential (primary) hypertension; F17.290 Nicotine dependence, other tobacco product, uncomplicated
CPT/HCPCS: 36415; 80053; 81001; 81003; 81025; 83690; 85025; 87086; 96361; 96374; 99284

== ENCOUNTER 2020-07-30 09:13 | Outpatient (CLI) | payer MEDICAID ==
--- NOTE | 2020-07-30 15:40 | Ultrasound Report ---
PROCEDURE: Abdomen Complete INDICATIONS: CHRONIC ABD PAIN TECHNIQUE: Real-time scanning was performed of the abdominal and retroperitoneal organs, with image documentatio n. COMPARISON: 06/16/2020 FINDINGS: Liver: The liver demonstrates normal size. The liver demonstrates moderately increased echogenicit y, which limits ultrasound sensitivity for detection of masses. Gallbladder: 2 tiny shadowing gallstones are seen. The gallbladder wall does not appear thickened. Th ere is no specific pericholecystic fluid. The sonographic Bocanegra's sign is negative. Biliary ducts: Intrahepatic bile ducts are non-dilated. Extrahepatic bile duct caliber measures 7 m m. Normal is 6-7 mm or less in diameter, or 10 mm or less post-cholecystectomy. Pancreas: Visualized portions of the pancreas are sonographically normal. Spleen: Spleen is normal in size and homogeneous in echotexture. Kidneys: Kidneys are normal in size and echotexture. Right kidney measures 11.3 cm long; left kidne y measures 10.1 cm long. No hydronephrosis or nephrolithiasis. No solid masses. Aorta: Visualized aorta is normal in caliber at less than 3 cm. Iliacs: Proximal common iliac arteries are normal in caliber at less than 2.5 cm. IVC: Intrahepatic inferior vena cava is patent. Miscellaneous: No free abdominal fluid. IMPRESSION: Gallstones can be seen within the gallbladder, without additional sonographic signs of cholecystitis. The common bile duct measures at the upper limits of normal at 7 mm. Reviewed by: Bran Welch MD on 07/30/2020 2:38 PM [facility] Approved by: Bran Welch MD on 07/30/2020 2:38 PM [facility] Station ID: [id number]
== END 2020-07-30 09:14 | disposition home or self-care (01) ==
LOC: DI 09:13
PROVIDERS: ATTEND Registered Nurse
DX: K80.20 Calculus of gallbladder without cholecystitis without obstruction (principal)

== ENCOUNTER 2021-02-21 08:00 | Outpatient (CLI) | payer MEDICAID ==
[2021-02-21 16:19] LABS: BILIRUBIN,URINE NEGATIVE (NEGATIVE); GLUCOSE, URINE (UA) NEGATIVE (NEGATIVE); KETONES,URINE (UA) NEGATIVE (NEGATIVE); LEUKOCYTE ESTERASE, URINE NEGATIVE (NEGATIVE); NITRITE,URINE NEGATIVE (NEGATIVE); OCCULT BLOOD,URINE NEGATIVE (NEGATIVE); PROTEIN,URINE NEGATIVE (NEGATIVE); UROBILINOGEN,URINE 0.2 (NORMAL) E.U./dL (NORMAL)
[2021-02-21 16:21] LABS: CLARITY,URINE CLEAR (CLEAR)
[2021-02-21 16:43] LABS: BACTERIA,URINE Rare /HPF (None Seen); RBC,URINE None Seen /HPF (0-5); SQUAMOUS EPITHELIAL CELL,UR MOD Squamous (<= Few); WBC,URINE 0-3 /HPF (0-5)
== END 2021-02-21 23:59 | disposition home or self-care (01) ==
LOC: LAB 08:00
PROVIDERS: ATTEND Obstetrics & Gynecology
DX: R10.2 Pelvic and perineal pain (principal)
CPT/HCPCS: 81001; 87086

== ENCOUNTER 2021-03-08 11:30 | Outpatient (CLI) | payer MEDICAID ==
[2021-03-08 18:34] LABS: BACTERIAL VAGINOSIS DNA NEGATIVE (NEGATIVE); CANDIDA GLABRATA DNA NEGATIVE (NEGATIVE); CANDIDA GROUP DNA NEGATIVE (NEGATIVE); CANDIDA KRUSEI DNA NEGATIVE (NEGATIVE); TRICHOMONAS VAGINALIS DNA NEGATIVE (NEGATIVE)
== END 2021-03-08 23:59 | disposition home or self-care (01) ==
LOC: LAB 11:30
PROVIDERS: ATTEND Obstetrics & Gynecology
DX: N89.8 Other specified noninflammatory disorders of vagina (principal)
CPT/HCPCS: 87661; 87801

== ENCOUNTER 2021-03-21 08:00 | Outpatient (CLI) | payer MEDICARE | END 2021-03-21 23:59 | disposition home or self-care (01) | LOC: LAB.WC 08:00 | PROVIDERS: ATTEND Obstetrics & Gynecology | DX: Z53.9 Procedure and treatment not carried out, unspecified reason (principal) ==

== ENCOUNTER 2021-04-04 14:46 | Outpatient (CLI) | payer MEDICARE, MEDICAID ==
--- NOTE | 2021-04-04 19:43 | Ultrasound Report ---
PROCEDURE: Pelvic w/Transvaginal INDICATIONS: PELVIC PAIN TECHNIQUE: Real-time scanning was performed of the pelvic organs, with image documentation. Additional endovagi nal scanning was necessary due to incomplete visualization of the adnexal and endometrial structures by transabdominal scanning. COMPARISON: Pelvic ultrasound 01/31/2015. FINDINGS: No pathologic free abdominal or pelvic fluid. Uterus: Uterus is normal in size at 8.4 x 3.7 x 5 cm cm. The uterus is anteverted. The myometrium ap pears mildly heterogeneous with linear posterior acoustic shadowing. The endometrium measures 3 mm in combined thickness. An intrauterine device is in expected position within the endometrial canal. Tr barbara fluid is seen in the endometrial and endocervical canals. Ovaries: The right ovary measures 2.5 x 1.4 x 1.9 cm (3 cc). The left ovary measures 2.6 x 2.4 x 2.7 cm (12 cc). A dominant left ovarian follicle measures 2 x 1.5 x 2 cm. IMPRESSION: 1.Intrauterine device is seen in expected position. 2.Mildly heterogeneous myometrium with posterior shadowing can be seen in the setting of adenomyosis. Recommend correlation with clinical findings. 3.No sonographic signs of ovarian torsion. Reviewed by: Malcolm Hobbs MD on 04/04/2021 7:41 PM PST Approved by: Malcolm Hobbs MD on 04/04/2021 7:41 PM PST Station ID: [id number]
== END 2021-04-04 14:47 | disposition home or self-care (01) ==
LOC: DI 14:46
PROVIDERS: ATTEND Obstetrics & Gynecology
DX: R10.2 Pelvic and perineal pain (principal); R93.89 Abnormal findings on diagnostic imaging of other specified body structures; Z97.5 Presence of (intrauterine) contraceptive device

== ENCOUNTER 2021-05-19 16:49 | Emergency (ER) | payer MEDICARE, MEDICAID ==
[2021-05-19 17:01] VITALS: BP 143/87
--- NOTE | 2021-05-19 17:11 | ED Physician Documentation ---
PD HPI ABD PAIN - Stated complaint Stated Complaint: CHILLS,N/V/D,COUGH, CONGESTION - Chief complaint Chief Complaint: Abd Pain - History obtained from History obtained from: Patient - Additional information Additional information: Previously healthy 30-year-old woman who is unvaccinated against COVID presents mostly requesting a Covid test. She has been sick for 2 days with vomiting, diarrhea, and body aches. As well as subjective fevers and chills. Review of Systems Ten Systems: 10 systems reviewed and negative Constitutional: reports: Fever, Chills, Myalgias, Fatigue Respiratory: denies: Dyspnea, Cough GI: reports: Nausea, Vomiting, Diarrhea. 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 - Present Medications Home Medications: Ambulatory Orders Medication Instructions Recorded Confirmed Pnv No.121/Iron/Folic Acid 1 each PO DAILY #30 tablet 11/18/17 [ Multivitamin Tablet] Pyridoxine HCl (Vitamin B6) 25 mg PO Q8H PRN #10 tablet 11/18/17 [Vitamin B-6] Sulfamethoxazole/Trimethoprim 1 each PO BID #6 tablet 12/09/18 [Sulfamethoxazole-Tmp Ds Tablet] Omeprazole 40 mg PO DAILY #30 06/16/20 Ibuprofen [Motrin] 800 mg PO Q8H PRN #30 tablet 05/19/21 Loperamide [Imodium] 2 mg PO QID PRN #10 cap 05/19/21 Ondansetron Odt [Zofran] 4 mg TL Q6H PRN #10 tablet 05/19/21 - Allergies Allergies/Adverse Reactions: Allergies Allergy/AdvReac Type Severity Reaction Status Date / Time No Known Drug Allergies Allergy Verified 05/19/21 17:02 - Social History Does the pt smoke?: No Smoking Status: Never smoker Does the pt drink ETOH?: No Does the pt have substance abuse?: No - Immunizations Immunizations are current?: Yes - POLST Patient has POLST: No PD ED PE NORMAL - Vitals Vital signs reviewed: Yes - General General: Alert and oriented X 3, No acute distress, Well developed/nourished - Neck Neck: Supple, no meningeal sign, No bony TTP - Cardiac Cardiac: RRR, No murmur - Respiratory Respiratory: No respiratory distress, Clear bilaterally - Abdomen Abdomen: Normal bowel sounds, Soft, Non tender - Back Back: No CVA TTP, No spinal TTP - Derm Derm: Normal color, Warm and dry - Extremities Extremities: No edema, No calf tenderness / cord - Neuro Neuro: Alert and oriented X 3, Normal speech Results - Vitals Vitals: Vital Signs - 24 hr 05/19/21 16:57 Temperature 36.1 C L Heart Rate 107 H Respiratory 18 Rate Blood Pressure 143/87 H O2 Saturation 98 Oxygen O2 Source Room air Departure - Departure Disposition: Home, Self Care Clinical Impression: Viral syndrome Condition: Good Record reviewed to determine appropriate education?: Yes Instructions: ED Viral Syndrome Prescriptions: Loperamide [Imodium] 2 mg PO QID PRN #10 cap PRN Reason: Diarrhea Ibuprofen [Motrin] 800 mg PO Q8H PRN #30 tablet PRN Reason: PAIN &/OR FEVER Ondansetron Odt [Zofran] 4 mg TL Q6H PRN #10 tablet PRN Reason: Nausea / Vomiting Comments: I sent your prescriptions electronically to [facility] in [place]. Call your doctor to arrange a follow-up appointment, make the next available appointment. In the interim, return anytime if worse or if new symptoms develop. You have a Covid test pending. You need to self quarantine until the result is done and negative. Do not leave your house. Do not get near anybody. The results should be done in 48 to 72 hours. We will call with a positive result, the fastest way to get a negative result for confirmation though is to go to the hospital website at [email or web address], click on the my [facility] tab and sign up for the patient portal. If any friends or family get sick and would like to have a Covid test done, but do not have signs or symptoms that would necessitate being hospitalized, there are multiple local options for Covid testing. [facility] keeps an updated list of testing and vaccination options at: [email or web address].
== END 2021-05-19 17:30 | disposition home or self-care (01) ==
LOC: ED 16:49
DX: U07.1 COVID-19 (principal); R11.2 Nausea with vomiting, unspecified; R19.7 Diarrhea, unspecified; I10 Essential (primary) hypertension
CPT/HCPCS: 99282; 99283; U0004

== ENCOUNTER 2022-02-06 10:45 | Emergency (ER) | payer MEDICARE, MEDICAID ==
[2022-02-06 11:02] VITALS: BP 135/77
--- OUTSIDE RECORDS SUMMARY | 2022-02-06 11:22 | EXTERNAL MEDICAL SUMMARY RPT | Continuity of Care Document ---
:1990 Author Organization [facility] Address [address] [place] [address] Phone Allergies No information. Encounters No information. Functional Status No information. Immunizations No information. Medications date description facility [id number] trazodone All [id number]+0000 trazodone All Problems No information. Procedures date description facility [id number] Visit Code Hold All Results/Labs No information. Social History date description facility [id number] Never smoker All Vital Signs date measurement value units [id number]+0000 BMI BMI 25.85 kg/m2 09314732330737+0000 BP_diastolic BP_diastolic 70 mm[H g] 31006998696107+0000 BP_systolic BP_systolic 110 mm[Hg] 75082533177999+0000 heart_rate heart_rate 71 /min [id number]+0000 height_metric height_metric 153.03 cm [id number]+0000 height_standard height_standard 60.25 in 74180228319517+0000 respiration_rate respiration_rate 14 /min 27521450388365+0000 temperature_metric temperature_metric 36.39 C [id number]+0000 temperature_standard temperature_standard 9 7.5 F [id number]+0000 weight_metric weight_metric 60.33 kg 51204543449699+0000 weight_standard weight_standard 133 lb
--- NOTE | 2022-02-06 11:52 | XRAY Report ---
PROCEDURE: Chest 2 View X-Ray INDICATIONS: cough TECHNIQUE: 2 views of the chest were obtained. COMPARISON: None. FINDINGS: Cardiac mediastinal silhouette is normal in size and contour. No effusions, consolidations or pneumot horax. Osseous and soft tissue structures are unremarkable. IMPRESSION: No acute pulmonary process. Reviewed by: Sveta Corrales MD on 02/06/2022 11:51 AM PDT Approved by: Sveta Corrales MD on 02/06/2022 11:51 AM PDT Station ID: [id number]
== END 2022-02-06 12:40 | disposition left against medical advice (07) ==
LOC: ED 10:45
DX: Z53.21 Procedure and treatment not carried out due to patient leaving prior to being seen by health care provider (principal); Z20.822 Contact with and (suspected) exposure to COVID-19
CPT/HCPCS: 93005

== ENCOUNTER 2022-03-28 10:02 | Emergency (ER) | payer MEDICARE, MEDICAID ==
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
[2022-03-28] MEDS ORDERED: tiZANidine 4 MG TABLET PO STA (12:52)
[2022-03-28] MEDS ORDERED: HYDROcod/ACETAM 5/325 MG TABLET PO STA (12:52)
[2022-03-28 13:37] VITALS: BP 119/91
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
== END 2022-03-28 14:59 | disposition home or self-care (01) ==
LOC: ED 10:02
DX: S16.1XXA Strain of muscle, fascia and tendon at neck level, initial encounter (principal); S39.012A Strain of muscle, fascia and tendon of lower back, initial encounter; V48.6XXA Car passenger injured in noncollision transport accident in traffic accident, initial encounter
CPT/HCPCS: 72125; 72131; 99284; A9270

== ENCOUNTER 2022-06-06 09:15 | Outpatient (CLI) | payer MEDICARE, MEDICAID ==
[2022-06-06 18:13] LABS: BACTERIAL VAGINOSIS DNA POSITIVE (NEGATIVE); CANDIDA GLABRATA DNA NEGATIVE (NEGATIVE); CANDIDA GROUP DNA NEGATIVE (NEGATIVE); CANDIDA KRUSEI DNA NEGATIVE (NEGATIVE); TRICHOMONAS VAGINALIS DNA NEGATIVE (NEGATIVE)
[2022-06-06 23:50] LABS: CHLAMYDIA TRACHOMATIS DNA NEGATIVE (NEGATIVE)
[2022-06-06 23:51] LABS: NEISSERIA GONORRHOEAE DNA NEGATIVE (NEGATIVE)
== END 2022-06-06 09:30 | disposition home or self-care (01) ==
LOC: LAB.N 09:15
PROVIDERS: ATTEND Registered Nurse
DX: N89.8 Other specified noninflammatory disorders of vagina (principal)
CPT/HCPCS: 81514; 87491; 87591; 87661

== ENCOUNTER 2022-12-06 08:58 | Emergency (ER) | payer MEDICARE, MEDICAID ==
[2022-12-06 09:14] VITALS: BP 149/90; O2SAT 100
[2022-12-06 09:36] LABS: BILIRUBIN,URINE NEGATIVE (NEGATIVE); GLUCOSE, URINE (UA) NEGATIVE (NEGATIVE); KETONES,URINE (UA) NEGATIVE (NEGATIVE); LEUKOCYTE ESTERASE, URINE NEGATIVE (NEGATIVE); NITRITE,URINE NEGATIVE (NEGATIVE); OCCULT BLOOD,URINE NEGATIVE (NEGATIVE); PROTEIN,URINE NEGATIVE (NEGATIVE); UROBILINOGEN,URINE 0.2 (NORMAL) E.U./dL (NORMAL)
[2022-12-06 09:39] LABS: CLARITY,URINE CLEAR (CLEAR); HCG UR QUAL NEGATIVE
--- NOTE | 2022-12-06 10:15 | ED Physician Documentation ---
PD HPI FEMALE - Stated complaint Stated Complaint: - Chief complaint Chief Complaint: General - History obtained from History obtained from: Patient - Additional information Additional information: Patient is a 32-year-old female presenting for evaluation of vaginal irritation and discharge she has noticed for the past 2 days. Reports having new white vaginal discharge. Denying concerns for STI but reports her significant other who is not circumcised recently was treated for a yeast infection with nystatin cream. Patient denies vaginal bleeding. Denies abdominal pain. Denies concerns for . No dysuria. Review of Systems Constitutional: denies: Fever Cardiac: denies: Chest pain / pressure Respiratory: denies: Dyspnea GI: denies: Abdominal Pain : reports: Discharge. denies: Vaginal bleeding Musculoskeletal: denies: Back pain PD PAST MEDICAL HISTORY - Past Medical History Cardiovascular: Hypertension Respiratory: Asthma Neuro: Cerebral palsy Psych: Anxiety - Past Surgical History Past Surgical History: Yes Ortho: Other /[employer]: section - Present Medications Home Medications: Ambulatory Orders Medication Instructions Recorded Confirmed Pnv No.121/Iron/Folic Acid 1 each PO DAILY #30 tablet 11/18/17 [ Multivitamin Tablet] Pyridoxine HCl (Vitamin B6) 25 mg PO Q8H PRN #10 tablet 11/18/17 [Vitamin B-6] Sulfamethoxazole/Trimethoprim 1 each PO BID #6 tablet 12/09/18 [Sulfamethoxazole-Tmp Ds Tablet] Omeprazole 40 mg PO DAILY #30 06/16/20 Ibuprofen [Motrin] 800 mg PO Q8H PRN #30 tablet 05/19/21 Loperamide [Imodium] 2 mg PO QID PRN #10 cap 05/19/21 Ondansetron Odt [Zofran] 4 mg TL Q6H PRN #10 tablet 05/19/21 HYDROcod/ACETAM 5/325 [[place] 5/325] 1 ea PO Q6H PRN #18 tablet 03/28/22 tiZANidine [Zanaflex] 4 mg PO Q8H PRN #25 tablet 03/28/22 Fluconazole [Diflucan] 150 mg PO ONCE PRN #1 tablet 12/06/22 - Allergies Allergies/Adverse Reactions: Allergies Allergy/AdvReac Type Severity Reaction Status Date / Time No Known Drug Allergies Allergy Verified 12/06/22 09:07 - Social History Does the pt smoke?: No Smoking Status: Never smoker Does the pt drink ETOH?: No Does the pt have substance abuse?: No - Immunizations Immunizations are current?: Yes - POLST Patient has POLST: No PD ED PE NORMAL - General General: Alert and oriented X 3, No acute distress, Well developed/nourished - HEENT HEENT: Atraumatic - Neck Neck: Supple, no meningeal sign - Respiratory Respiratory: No respiratory distress - Abdomen Abdomen: Normal bowel sounds, Soft, Non tender, Non distended - Female Female : Hopper Feeder present (BECCA Bedoya), Other (Normal external exam with no signs of rash, normal-appearing cervix, white vaginal discharge, no CMT or adnexal tenderness) - Derm Derm: Warm and dry - Neuro Neuro: Normal speech Results - Vitals Vitals: Vital Signs - 24 hr 12/06/22 09:03 Temperature 36.4 C L Heart Rate 96 Respiratory 16 Rate Blood Pressure 149/90 H O2 Saturation 100 Oxygen O2 Source Room air - Labs Labs: Laboratory Tests 12/06/22 12/06/22 09:20 09:30 Urine Color YELLOW Urine Clarity CLEAR Urine pH 7.0 Ur Specific [place] 1.020 Urine Protein NEGATIVE Urine Glucose (UA) NEGATIVE Urine Ketones NEGATIVE Urine Occult Blood NEGATIVE Urine Nitrite NEGATIVE Urine Bilirubin NEGATIVE Urine Urobilinogen 0.2 (NORMAL) Ur Leukocyte Esterase NEGATIVE Ur Microscopic Review NOT INDICATED Urine Culture Comments NOT INDICATED Urine HCG, Qual NEGATIVE C. glabrata (PCR) NEGATIVE C. krusei (PCR) NEGATIVE Lexi species DNA POSITIVE A T. vaginalis (PCR) NEGATIVE Bact Vaginosis (PCR) NEGATIVE PD Medical Decision Making - ED course Complexity details: reviewed results, re-evaluated patient, d/w patient ED course: 1205 - I called patient at home to relay results of her vaginosis swab that are positive for Lexi. I have sent a prescription for Diflucan to [facility] in [place] and patient understands plan for treatment. Patient presenting for evaluation of vaginal irritation and abnormal discharge. She denies concerns for STIs. Urinalysis is negative for infection and . Pelvic exam was performed with no signs of PID or retained foreign body. Swabs were also collected. Vaginosis swab is positive for Lexi. I reviewed this result with the patient and she understands treatment plan. She is also aware that one swab is pending and we will notify her of any abnormal results. Patient counseled on concerning symptoms to return for. Departure - Departure Disposition: 01 Home, Self Care Clinical Impression: Vaginal discharge, Lexi vaginitis Condition: Stable Instructions: Vaginal Infec Prevent Prescriptions: Fluconazole [Diflucan] 150 mg PO ONCE PRN #1 tablet PRN Reason: yeast infection Comments: You were evaluated for vaginal irritation and discharge. Your swabs that were collected will take a few hours to a day to result. I will notify you today if the first swab that results back is abnormal in any way and send in prescriptions for you to [facility]. You can also check your results on the patient portal. Return to the emergency department with any worsening symptoms. Forms: PCP List Discharge Date/Time: 12/06/22 10:20
[2022-12-06 11:51] LABS: BACTERIAL VAGINOSIS DNA NEGATIVE (NEGATIVE); CANDIDA GLABRATA DNA NEGATIVE (NEGATIVE); CANDIDA GROUP DNA POSITIVE (NEGATIVE); CANDIDA KRUSEI DNA NEGATIVE (NEGATIVE); TRICHOMONAS VAGINALIS DNA NEGATIVE (NEGATIVE)
[2022-12-06 13:54] LABS: CHLAMYDIA TRACHOMATIS DNA NEGATIVE (NEGATIVE); NEISSERIA GONORRHOEAE DNA NEGATIVE (NEGATIVE)
== END 2022-12-06 10:20 | disposition home or self-care (01) ==
LOC: ED 08:58
DX: B37.31 Acute candidiasis of vulva and vagina (principal)
CPT/HCPCS: 81001; 81003; 81025; 81514; 87086; 87491; 87591; 87661; 87801; 99283

== ENCOUNTER 2024-01-10 12:15 | Outpatient (CLI) | payer MEDICARE, MEDICAID ==
[2024-01-10 20:01] LABS: CHLAMYDIA TRACHOMATIS DNA NEGATIVE (NEGATIVE); NEISSERIA GONORRHOEAE DNA NEGATIVE (NEGATIVE)
[2024-01-10 21:02] LABS: BACTERIAL VAGINOSIS DNA POSITIVE (NEGATIVE); CANDIDA GLABRATA DNA NEGATIVE (NEGATIVE); CANDIDA GROUP DNA NEGATIVE (NEGATIVE); CANDIDA KRUSEI DNA NEGATIVE (NEGATIVE); TRICHOMONAS VAGINALIS DNA NEGATIVE (NEGATIVE)
== END 2024-01-10 12:30 | disposition home or self-care (01) ==
LOC: LAB.N 12:15
PROVIDERS: ATTEND Physician Assistant Medical
DX: R10.30 Lower abdominal pain, unspecified (principal)
CPT/HCPCS: 81514; 87086; 87491; 87591; 87661